=== PATIENT | male | born 1935 | race Caucasian/White ===

== ENCOUNTER → 2018-08-14 10:59 | Outpatient (CLI) | payer MEDICARE, OTHER, SELFPAY ==
[2018-08-14 11:58] LABS: Add Manual Diff / Slide Review NO; Basophils Percent Auto 0.7 % (0-2); Eosinophils Percent Auto 4.3 % (2-4); Hematocrit 44.3 % (41-53); Hemoglobin 15.1 g/dL (13.5-17.5); Mean Corpuscular HGB Conc 34.1 % (30-36); Mean Corpuscular Hemoglobin 30.4 PG (26-34); Mean Corpuscular Volume 89.3 fL (80-100); Monocytes Percent Auto 8.3 % (3-14); Neutrophils Absolute Auto 3200 /uL (1500-7000); Neutrophils Percent Auto 58.7 % (50-75); Platelet Count 228 X10^3/uL (150-400); Red Blood Cell Count 4.96 X10^6/uL (4.5-5.9); Red Cell Distribution Width 13.5 % (11.6-14.8); White Blood Cell Count 5.4 X10^3/uL (4.5-11.0)
[2018-08-14 12:07] LABS: Alanine Aminotransferase 31 IU/L (21-72); Albumin 4.1 g/dL (3.5-5.0); Albumin Globulin Ratio 1.6 (1.0-2.8); Alkaline Phosphatase 55 U/L (38-126); Aspartate Aminotransferase 30 IU/L (17-59); BUN Creatinine Ratio 17.3 (6-22); Bilirubin Total 0.6 mg/dL (0.2-1.3); Blood Urea Nitrogen 19 mg/dL (9-20); Calcium 9.1 mg/dL (8.4-10.2); Carbon Dioxide 28 mmol/L (22-32); Chloride 105 mmol/L (98-107); Cholesterol 213 mg/dL (140-199); Estimated Glomerular Filt Rate > 60.0 mL/min (>60); Globulin 2.6 g/dL (1.7-4.1); Glucose 89 mg/dL (80-110); HDL Cholesterol 41 mg/dL (40-60); HEMOLYSIS < 15 (0-50); LDL Cholesterol Calculated 157 mg/dL (<100); Potassium 4.4 mmol/L (3.4-5.1); Sodium 142 mmol/L (137-145); Total Protein 6.7 g/dL (6.3-8.2); Triglycerides 73 mg/dL (35-150)
== END ==
PROVIDERS: Family Provider Internal Medicine; PCP Internal Medicine; Visit Provider Internal Medicine
DX: E78.5 Hyperlipidemia, unspecified (principal); G40.209 Localization-related (focal) (partial) symptomatic epilepsy and epileptic syndromes with complex partial seizures, not intractable, without status epilepticus
CPT/HCPCS: 36415; 80053; 80061; 85025

== ENCOUNTER → 2018-12-14 15:27 | Outpatient (CLI) | payer MEDICARE, OTHER, SELFPAY ==
[2018-12-16 15:59] LABS: Lamotrigine Lamictal 1.5 mcg/mL (4.0-18.0)
== END ==
PROVIDERS: Family Provider Internal Medicine; PCP Internal Medicine; Visit Provider Specialist
DX: G40.219 Localization-related (focal) (partial) symptomatic epilepsy and epileptic syndromes with complex partial seizures, intractable, without status epilepticus (principal)
CPT/HCPCS: 36415; 80175

== ENCOUNTER → 2019-02-16 13:38 | Outpatient (CLI) | payer MEDICARE, OTHER, SELFPAY ==
[2019-02-20 07:37] LABS: Lamotrigine Lamictal 4.1 mcg/mL (4.0-18.0)
== END ==
PROVIDERS: PCP Internal Medicine; Visit Provider Specialist
DX: G40.219 Localization-related (focal) (partial) symptomatic epilepsy and epileptic syndromes with complex partial seizures, intractable, without status epilepticus (principal)
CPT/HCPCS: 36415; 80175

== ENCOUNTER → 2019-11-27 15:48 | Outpatient (CLI) | payer MEDICARE, OTHER, SELFPAY ==
[2019-11-29 11:07] LABS: COVID19 Sendout Not Detected (Not Detected)
== END ==
PROVIDERS: PCP Internal Medicine; Visit Provider Physician Assistant
DX: R50.9 Fever, unspecified (principal)
CPT/HCPCS: 87635

== ENCOUNTER → 2019-12-27 10:49 | Outpatient (CLI) | payer MEDICARE, OTHER, SELFPAY ==
[2019-12-27 12:13] LABS: Add Manual Diff / Slide Review NO; Basophils Absolute Auto 0 /uL (0-100); Basophils Percent Auto 0.6 % (0-2); Eosinophils Absolute Auto 200 /uL (0-450); Eosinophils Percent Auto 4.3 % (2-4); Hematocrit 42.1 % (41-53); Hemoglobin 14.3 g/dL (13.5-17.5); Lymphocytes Absolute Auto 1200 /uL (1100-4500); Lymphocytes Percent Auto 26.1 % (25-40); Mean Corpuscular HGB Conc 34.1 % (30-36); Mean Corpuscular Hemoglobin 30.3 PG (26-34); Mean Corpuscular Volume 88.7 fL (80-100); Monocytes Absolute Auto 400 /uL (0-900); Monocytes Percent Auto 7.7 % (3-14); Neutrophils Absolute Auto 2900 /uL (1500-7000); Neutrophils Percent Auto 61.3 % (50-75); Platelet Count 217 X10^3/uL (150-400); Red Blood Cell Count 4.74 X10^6/uL (4.5-5.9); Red Cell Distribution Width 14.7 % (11.6-14.8); White Blood Cell Count 4.8 X10^3/uL (4.5-11.0)
[2019-12-27 12:14] LABS: Alanine Aminotransferase 20 IU/L (<50); Albumin 3.9 g/dL (3.5-5.0); Albumin Globulin Ratio 1.4 (1.0-2.8); Alkaline Phosphatase 59 U/L (38-126); Aspartate Aminotransferase 31 IU/L (17-59); BUN Creatinine Ratio 19.3 (6-22); Bilirubin Total 0.7 mg/dL (0.2-1.3); Blood Urea Nitrogen 21 mg/dL (9-20); Calcium 9.2 mg/dL (8.4-10.2); Carbon Dioxide 28 mmol/L (22-32); Chloride 105 mmol/L (98-107); Cholesterol 199 mg/dL (140-199); Estimated Glomerular Filt Rate > 60.0 mL/min (>60); Globulin 2.8 g/dL (1.7-4.1); Glucose 95 mg/dL (80-110); HDL Cholesterol 42 mg/dL (40-60); HEMOLYSIS < 15 (0-50); LDL Cholesterol Calculated 144 mg/dL (<100); Potassium 4.8 mmol/L (3.4-5.1); Sodium 138 mmol/L (137-145); Total Protein 6.7 g/dL (6.3-8.2); Triglycerides 63 mg/dL (35-150)
== END ==
PROVIDERS: PCP Internal Medicine; Referring Provider Internal Medicine; Visit Provider Internal Medicine
DX: Z13.1 Encounter for screening for diabetes mellitus (principal); Z13.6 Encounter for screening for cardiovascular disorders; E78.5 Hyperlipidemia, unspecified
CPT/HCPCS: 36415; 80053; 80061; 85025

== ENCOUNTER → 2021-01-04 11:05 | Outpatient (CLI) | payer MEDICARE, OTHER, SELFPAY ==
--- NOTE | 2021-01-04 11:08 | DI.RAD.S_ITS ---
PROCEDURE: XR LUMBAR SPINE 2-3V INDICATIONS: back pain TECHNIQUE: 3 views of the lumbar spine were acquired. COMPARISON: None. FINDINGS: Bones: Mild left scoliosis. No evidence of acute fracture. Multilevel degenerative endplate sclerosis and spurring. Diffuse facet arthropathy. Moderate narrowing of the L3-L4, L4-L5 and L5-S1 disc spaces. Soft tissues: Overlying bowel gas pattern is normal. No suspicious soft tissue calcifications. IMPRESSION: Moderate lumbar spondylosis involving the mid-lower levels. Diffuse facet arthropathy Levoscoliosis Dictated by: Rivera Gorman M.D. on 01/04/2021 at 12:39 Approved by: Rivera Gorman M.D. on 01/04/2021 at 12:40
[2021-01-04 12:19] LABS: Add Manual Diff / Slide Review NO; Basophils Absolute Auto 0 /uL (0-100); Basophils Percent Auto 0.6 % (0-2); Eosinophils Absolute Auto 200 /uL (0-450); Eosinophils Percent Auto 4.3 % (2-4); Hematocrit 45.3 % (41-53); Hemoglobin 15.4 g/dL (13.5-17.5); Lymphocytes Absolute Auto 1300 /uL (1100-4500); Lymphocytes Percent Auto 25.2 % (25-40); Mean Corpuscular Hemoglobin 30.6 PG (26-34); Mean Corpuscular Volume 90.1 fL (80-100); Monocytes Absolute Auto 400 /uL (0-900); Monocytes Percent Auto 8.5 % (3-14); Neutrophils Absolute Auto 3200 /uL (1500-7000); Neutrophils Percent Auto 61.4 % (50-75); Platelet Count 209 X10^3/uL (150-400); Red Blood Cell Count 5.03 X10^6/uL (4.5-5.9); Red Cell Distribution Width 13.7 % (11.6-14.8); White Blood Cell Count 5.2 X10^3/uL (4.5-11.0)
[2021-01-04 12:24] LABS: Alanine Aminotransferase 19 IU/L (<50); Albumin 3.9 g/dL (3.5-5.0); Albumin Globulin Ratio 1.5 (1.0-2.8); Alkaline Phosphatase 52 U/L (38-126); Aspartate Aminotransferase 30 IU/L (17-59); BUN Creatinine Ratio 21.4 (6-22); Bilirubin Total 0.6 mg/dL (0.2-1.3); Blood Urea Nitrogen 24 mg/dL (9-20); Calcium 9.4 mg/dL (8.4-10.2); Carbon Dioxide 28 mmol/L (22-32); Chloride 104 mmol/L (98-107); Estimated Glomerular Filt Rate > 60.0 mL/min (>60); Globulin 2.6 g/dL (1.7-4.1); Glucose 78 mg/dL (80-110); HEMOLYSIS < 15 (0-50); Potassium 4.7 mmol/L (3.4-5.1); Sodium 138 mmol/L (137-145); Total Protein 6.5 g/dL (6.3-8.2)
[2021-01-08 12:36] LABS: Lamotrigine Lamictal 2.9 ug/mL (2.0-20.0)
== END ==
PROVIDERS: PCP Internal Medicine; Referring Provider Internal Medicine; Visit Provider Internal Medicine
DX: M41.9 Scoliosis, unspecified (principal); M54.9 Dorsalgia, unspecified; G40.209 Localization-related (focal) (partial) symptomatic epilepsy and epileptic syndromes with complex partial seizures, not intractable, without status epilepticus; M47.816 Spondylosis without myelopathy or radiculopathy, lumbar region; I10 Essential (primary) hypertension; E78.2 Mixed hyperlipidemia; Z79.899 Other long term (current) drug therapy
CPT/HCPCS: 36415; 72100; 80053; 80175; 85025

== ENCOUNTER 2021-03-06 11:15 | Outpatient (RCR) | payer MEDICARE, OTHER, SELFPAY ==
--- NOTE | 2021-01-18 12:26 | PT.OIE ---
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) Hyperlipidemia, unspecified (02/27/11) Past Surgical History (Last Reviewed 01/04/21 @ 11:58 by Dionicio Marques MD) History of cataract removal with insertion of prosthetic lens History of tonsillectomy Visit Care Team Role Provider Type Dionicio Marques MD Attending Provider Physician Primary Care Provider Referring Provider Specialty: Internal Medicine Address: [address] [place] [address], [address], [facility] Email: [email or web address] Physical Therapy Initial Evaluation PT-OP-A Visit Information Start: 01/18/21 12:03 Freq: Status: Active Protocol: Document 01/18/21 08:15 HH (Rec: 01/18/21 12:26 [email or web address]) Out-Patient Physical Therapy Visit Information Visit Information Visit Type Initial Evaluation Visit Start Time 08:15 Visit Stop Time 09:00 Total Visit Minutes 45 Visit Number 08/29 Number of SEW[employer] C[employer]ING[employer] Visits 0 Evaluation Information Evaluation Date 01/18/21 PT-OP-B Current Condition Start: 01/18/21 12:03 Freq: Status: Active Protocol: Document 01/18/21 08:15 HH (Rec: 01/18/21 12:26 [email or web address]) Current Condition History of Current Condition Onset Date couple months ago Current Complaints LBP, radiating pain to R hip, difficulty in walking and standing History of Current Condition Carlos is a 85yo male here for his LBP with radiating pain down to his R buttock. There's no known injury but started around a few months ago. He noticed back pain when he stands and during walking, along with new onset of leg collpasing episode occasionally. Denies tingling and numbness sensation. He hasnt had any falls yet since he was able to catch himself. He stated bending over, sitting, and lying down immediately relieve his pain so he has been doing knee to chest stretch. Pt overall is very active and like to walk couple miles a day and like to do yardwork and lawnmowing. Prior Treatments and Tests x-ray at [facility] 01/04/21 Bones: Mild left scoliosis. No evidence of acute fracture. Multilevel degenerative endplate sclerosis and spurring. Diffuse facet arthropathy. Moderate narrowing of the L3-L4, L4-L5 and L5-S1 disc spaces. Personal Factors Other Personal Factors That May Effect seizures. Therapy/Recovery PT-OP-C Subjective Start: 01/18/21 12:03 Freq: Status: Active Protocol: Document 01/18/21 08:15 HH (Rec: 01/18/21 12:26 [email or web address]) Patient Questionnaires Oswestry Low Back Index Oswestry Score 20 Oswestry Impairment 20 to 39% Impaired (Score 20- 39) PT-OP-D Balance Start: 01/18/21 12:03 Freq: Status: Active Protocol: Document 01/18/21 08:15 HH (Rec: 01/18/21 12:26 [email or web address]) Balance Tests Single Limb Standing Single Limb- Right 6,12,20 Single Limb- Left 3,6,18 PT-OP-F Manual Assessment Start: 01/18/21 12:03 Freq: Status: Active Protocol: Document 01/18/21 08:15 HH (Rec: 01/18/21 12:26 [email or web address]) Manual Assessments Soft Tissue Assessment Soft Tissue Mobility Assessment hypertonicity at R QL at L4-L5 region PT-OP-G Mobility & Gait Start: 01/18/21 12:03 Freq: Status: Active Protocol: Document 01/18/21 08:15 HH (Rec: 01/18/21 12:26 [email or web address]) OP Gait Assessment Comments Gait Comments dec stance time on RLE PT-OP-H Neuro Start: 01/18/21 12:03 Freq: Status: Active Protocol: Document 01/18/21 08:15 HH (Rec: 01/18/21 12:26 [email or web address]) Sensation Evaluation Gross Sensation Gross Sensation WNL Deep Tendon Reflex & Clonus Assessment Deep Tendon Reflex Bilateral Patellar Deep Tendon Reflex 0 Absent Bilateral Achilles Deep Tendon Reflex 2+ Normal PT-OP-J Posture/Palpation/Skin Start: 01/18/21 12:03 Freq: Status: Active Protocol: Document 01/18/21 08:15 HH (Rec: 01/18/21 12:26 [email or web address]) Posture Evaluation Position Standing Pelvis Posture Posterior Tilted Knee Posture (L) Excess Flexion,(R) Excess Flexion PT-OP-K Range of Motion Start: 01/18/21 12:03 Freq: Status: Active Protocol: Document 01/18/21 08:15 HH (Rec: 01/18/21 12:26 [email or web address]) Lumbar Spine Range of Motion Lumbar Spine Active Degrees Testing Position Standing Comments able to reach toes, no pain noted SB to L= 23 inches from floor , stretching sensation at R side SB to R= 23 inches from floor, with pain at R L4L5 extension= shoulders at heels, discomfort at R L4L5 Hip Goniometric Range of Motion Hip Right Active Hip ROM WFL Yes Straight Leg Raise 83 Left Active Hip ROM WFL Yes Straight Leg Raise 85 PT-OP-L Special Tests Start: 01/18/21 12:03 Freq: Status: Active Protocol: Document 01/18/21 08:15 HH (Rec: 01/18/21 12:26 [email or web address]) Special Tests Lumbar Spine Special Tests Slump Test Results -ve Standing Flexion Test Results pain relief quadrant test Test Results +ve R Comments extension, SB and rotation to R passively with pain at l4-L5 Straight Leg Raise Test Results -ve PT-OP-M Strength Start: 01/18/21 12:03 Freq: Status: Active Protocol: Document 01/18/21 08:15 HH (Rec: 01/18/21 12:26 [email or web address]) Hip Strength Hip Manual Muscle Testing Right Flexion (L2) 5 Normal Extension (S1) 5 Normal Abduction 4 Good Adduction 5 Normal Comments pain with resistive R abduction Left Flexion (L2) 5 Normal Extension (S1) 5 Normal Abduction 5 Normal Adduction 5 Normal Knee Strength Knee Manual Muscle Testing Left Flexion (S2) 5 Normal Extension (L3) 5 Normal Right Flexion (S2) 5 Normal Extension (L3) 5 Normal PT-OP-Q Treatments Start: 01/18/21 12:03 Freq: Status: Active Protocol: Document 01/18/21 08:15 HH (Rec: 01/18/21 12:26 [email or web address]) Therapeutic Exercises Supine Exercises piriformis stretch Side right Reps/Minutes 20 sec hold x5 Comments for HEP knee to chest Side bilateral Reps/Minutes 20 sec hold x5 Comments for HEP PT-OP-T Assessment and Plan Start: 01/18/21 12:03 Freq: Status: Active Protocol: Document 01/18/21 08:15 (Rec: 01/18/21 12:26 [email or web address]) Physical Therapy Assessment Rehab Potential Rehabilitation Potential Excellent Evaluation Complexity Number of Personal Factors/Comorbidities 0 Number of Body Systems Impaired 1-2 Clinical Presentation at Evaluation Stable Impairments Impairments Activity Tolerance,Balance, Functional Activities, Functional Mobility,Gait,Pain, Posture,ROM,Soft Tissue Mobility,Strength,Transfers Goals HEP Impairment pt does not ahve a HEP Short Term Goal (STG) pt will be compliant to complete his daily HEP safely and independently STG Duration 4 weeks activity tolerance Impairment pain with standing and walking Short Term Goal (STG) pt will be able to stand >10 mins and walk 1 mile without increase in LBP STG Duration 4 weeks Residential Goal (LTG) pt will be able to stand >30 mins and walk 3 mile/ day without LBP LTG Duration 8 weeks owestry Impairment pt scores 20 on owestry Short Term Goal (STG) pt will show improved overall quality of life by scoring <10 on owestry STG Duration 6 weeks Assessment Summary Assessment Carlos is a healthy and active 85 yo male here for his LBP with radiating R buttock pain started a few months ago with no known injury. Upon assessment, he shows signs of stenosis and possible facet joint syndrome at L4-L5 region which aligns with his x-ray findings. His pain tends to relieve with lumbar flexion based movements which increase foraminal space for peripheral nerves. Pt does not shows any neurological signs / weakness at this point fortunately. And he will benefit from skilled therapy to reduce his pain and build up his activity tolerance for walking and standing to continue his active lifestyle in pain free. Physical Therapy Plan Frequency and Duration Frequency of Treatment 1x/Week Duration of Treatment 8 weeks Plan of Care Start Date 02/07/21 Plan of Care End Date 03/19/21 Therapeutic Interventions Therapeutic Interventions Aquatic Therapy,Balance Training,Gait Training,Home Exercise Program,Joint Mobilizations,Manual Therapy, Neuromuscular Re-education, Patient/Caregiver Education, Self-Care/Home Management,Soft Tissue Mobilization,Taping, Therapeutic Activities, Therapeutic Exercises Modalities Cold Pack/Ice Massage,Electric Stimulation,Hot Packs, Infrared Therapy,Traction- Mechanical,Ultrasound Next Visit Focus/Plan Next Note Type Treatment Note Next Visit Plan flexion based ex knee to chest, piriformis pelvic tilt with flexion bridging open book
--- NOTE | 2021-01-18 12:27 | PT.OPPOC ---
Physical, Occupational & Speech Therapy At [facility] Current Diagnoses Dorsalgia, unspecified (01/18/21) Visit Care Team Role Provider Type Dionicio Marques MD Attending Provider Physician Primary Care Provider Referring Provider Specialty: Internal Medicine Address: [address] [place] [address], [facility] [address], [place], [address] Email: [email or web address] Plan Of Care PT-OP-T Assessment and Plan Start: 01/18/21 12:03 Freq: Status: Active Protocol: Document 01/18/21 08:15 HH (Rec: 01/18/21 12:26 HH [email or web address]) Physical Therapy Assessment Rehab Potential Rehabilitation Potential Excellent Evaluation Complexity Number of Personal Factors/Comorbidities 0 Number of Body Systems Impaired 1-2 Clinical Presentation at Evaluation Stable Impairments Impairments Activity Tolerance,Balance, Functional Activities, Functional Mobility,Gait,Pain, Posture,ROM,Soft Tissue Mobility,Strength,Transfers Goals HEP Impairment pt does not ahve a HEP Short Term Goal (STG) pt will be compliant to complete his daily HEP safely and independently STG Duration 4 weeks activity tolerance Impairment pain with standing and walking Short Term Goal (STG) pt will be able to stand >10 mins and walk 1 mile without increase in LBP STG Duration 4 weeks Traffic Chief Goal (LTG) pt will be able to stand >30 mins and walk 3 mile/ day without LBP LTG Duration 8 weeks owestry Impairment pt scores 20 on owestry Short Term Goal (STG) pt will show improved overall quality of life by scoring <10 on owestry STG Duration 6 weeks Assessment Summary Assessment Carlos is a healthy and active 85 yo male here for his LBP with radiating R buttock pain started a few months ago with no known injury. Upon assessment, he shows signs of stenosis and possible facet joint syndrome at L4-L5 region which aligns with his x-ray findings. His pain tends to relieve with lumbar flexion based movements which increase foraminal space for peripheral nerves. Pt does not shows any neurological signs / weakness at this point fortunately. And he will benefit from skilled therapy to reduce his pain and build up his activity tolerance for walking and standing to continue his active lifestyle in pain free. Physical Therapy Plan Frequency and Duration Frequency of Treatment 1x/Week Duration of Treatment 8 weeks Plan of Care Start Date 02/07/21 Plan of Care End Date 03/19/21 Therapeutic Interventions Therapeutic Interventions Aquatic Therapy,Balance Training,Gait Training,Home Exercise Program,Joint Mobilizations,Manual Therapy, Neuromuscular Re-education, Patient/Caregiver Education, Self-Care/Home Management,Soft Tissue Mobilization,Taping, Therapeutic Activities, Therapeutic Exercises Modalities Cold Pack/Ice Massage,Electric Stimulation,Hot Packs, Infrared Therapy,Traction- Mechanical,Ultrasound Next Visit Focus/Plan Next Note Type Treatment Note Next Visit Plan flexion based ex knee to chest, piriformis pelvic tilt with flexion bridging open book Plan of Care Dates Plan of Care Start Date 02/07/21 Plan of Care End Date 03/19/21 Electronically Signed by: Jose David Brown, PT 01/18/21 6031 Please Sign and Return: I have reviewed this Plan of Care and certify that the skilled therapy services above are required to meet the patient?s needs. Physician Signature Date Printed Name and Credentials Clinical Instructor Signature Printed Name and Credentials
--- NOTE | 2021-01-23 10:29 | PT.OTN ---
Current Diagnoses Dorsalgia, unspecified (01/23/21) Physical Therapy Treatment Note PT-OP-A Visit Information Start: 01/18/21 12:03 Freq: Status: Active Protocol: Document 01/23/21 10:24 OF (Rec: 01/23/21 10:29 OF [id number]) Out-Patient Physical Therapy Visit Information Visit Information Visit Type Treatment Note Visit Start Time 09:45 Visit Stop Time 10:21 Total Visit Minutes 36 Visit Number 2 Evaluation Information Evaluation Date 01/18/21 PT-OP-B Current Condition Start: 01/18/21 12:03 Freq: Status: Active Protocol: Document 01/18/21 08:15 HH (Rec: 01/18/21 12:26 HH [email or web address]) Current Condition History of Current Condition Onset Date couple months ago Current Complaints LBP, radiating pain to R hip, difficulty in walking and standing History of Current Condition Carlos is a 85yo male here for his LBP with radiating pain down to his R buttock. There's no known injury but started around a few months ago. He noticed back pain when he stands and during walking, along with new onset of leg collpasing episode occasionally. Denies tingling and numbness sensation. He hasnt had any falls yet since he was able to catch himself. He stated bending over, sitting, and lying down immediately relieve his pain so he has been doing knee to chest stretch. Pt overall is very active and like to walk couple miles a day and like to do yardwork and lawnmowing. Prior Treatments and Tests x-ray at [facility] 01/04/21 Bones: Mild left scoliosis. No evidence of acute fracture. Multilevel degenerative endplate sclerosis and spurring. Diffuse facet arthropathy. Moderate narrowing of the L3-L4, L4-L5 and L5-S1 disc spaces. Personal Factors Other Personal Factors That May Effect seizures. Therapy/Recovery PT-OP-C Subjective Start: 01/18/21 12:03 Freq: Status: Active Protocol: Document 01/23/21 10:24 OF (Rec: 01/23/21 10:29 OF [id number]) OP-PT Subjective Patient Comments Patient Comments Pt states he has been performing HEP for stretches, walking as instructed Patient Reported Progress Improving OP-PT Pain Assessment Pain Assessment Grid Paper Pain Assessment Grid Completed pt denies pain during tx PT-OP-D Balance Start: 01/18/21 12:03 Freq: Status: Active Protocol: Document 01/18/21 08:15 HH (Rec: 01/18/21 12:26 [email or web address]) Balance Tests Single Limb Standing Single Limb- Right 6,12,20 Single Limb- Left 3,6,18 PT-OP-F Manual Assessment Start: 01/18/21 12:03 Freq: Status: Active Protocol: Document 01/18/21 08:15 HH (Rec: 01/18/21 12:26 [email or web address]) Manual Assessments Soft Tissue Assessment Soft Tissue Mobility Assessment hypertonicity at R QL at L4-L5 region PT-OP-G Mobility & Gait Start: 01/18/21 12:03 Freq: Status: Active Protocol: Document 01/18/21 08:15 HH (Rec: 01/18/21 12:26 [email or web address]) OP Gait Assessment Comments Gait Comments dec stance time on RLE PT-OP-H Neuro Start: 01/18/21 12:03 Freq: Status: Active Protocol: Document 01/18/21 08:15 HH (Rec: 01/18/21 12:26 [email or web address]) Sensation Evaluation Gross Sensation Gross Sensation WNL Deep Tendon Reflex & Clonus Assessment Deep Tendon Reflex Bilateral Patellar Deep Tendon Reflex 0 Absent Bilateral Achilles Deep Tendon Reflex 2+ Normal PT-OP-J Posture/Palpation/Skin Start: 01/18/21 12:03 Freq: Status: Active Protocol: Document 01/18/21 08:15 HH (Rec: 01/18/21 12:26 [email or web address]) Posture Evaluation Position Standing Pelvis Posture Posterior Tilted Knee Posture (L) Excess Flexion,(R) Excess Flexion PT-OP-K Range of Motion Start: 01/18/21 12:03 Freq: Status: Active Protocol: Document 01/18/21 08:15 HH (Rec: 01/18/21 12:26 [email or web address]) Lumbar Spine Range of Motion Lumbar Spine Active Degrees Testing Position Standing Comments able to reach toes, no pain noted SB to L= 23 inches from floor , stretching sensation at R side SB to R= 23 inches from floor, with pain at R L4L5 extension= shoulders at heels, discomfort at R L4L5 Hip Goniometric Range of Motion Hip Right Active Hip ROM WFL Yes Straight Leg Raise 83 Left Active Hip ROM WFL Yes Straight Leg Raise 85 PT-OP-L Special Tests Start: 01/18/21 12:03 Freq: Status: Active Protocol: Document 01/18/21 08:15 HH (Rec: 01/18/21 12:26 HH [email or web address]) Special Tests Lumbar Spine Special Tests Slump Test Results -ve Standing Flexion Test Results pain relief quadrant test Test Results +ve R Comments extension, SB and rotation to R passively with pain at l4-L5 Straight Leg Raise Test Results -ve PT-OP-M Strength Start: 01/18/21 12:03 Freq: Status: Active Protocol: Document 01/18/21 08:15 HH (Rec: 01/18/21 12:26 HH [email or web address]) Hip Strength Hip Manual Muscle Testing Right Flexion (L2) 5 Normal Extension (S1) 5 Normal Abduction 4 Good Adduction 5 Normal Comments pain with resistive R abduction Left Flexion (L2) 5 Normal Extension (S1) 5 Normal Abduction 5 Normal Adduction 5 Normal Knee Strength Knee Manual Muscle Testing Left Flexion (S2) 5 Normal Extension (L3) 5 Normal Right Flexion (S2) 5 Normal Extension (L3) 5 Normal PT-OP-Q Treatments Start: 01/18/21 12:03 Freq: Status: Active Protocol: Document 01/23/21 10:24 OF (Rec: 01/23/21 10:29 OF [id number]) Therapeutic Exercises Supine Exercises post tilt+bridge Side bilateral Reps/Minutes 3x5 Comments cues for post tilt with lift off during bridge piriformis stretch Side bilateral Reps/Minutes 20 sec hold x5 Comments for HEP knee to chest Side bilateral Reps/Minutes 20 sec hold x5 Comments for HEP Standing Exercises minisquat Side bilateral Reps/Minutes 3x5 Comments demo for glute recruitment, cues to control descent Neuro Re-Education Treatment Movement Re-Education Movement Re-education Activities pt re educated upon flexion bias, self stretching Self-Care/Home Management Treatment Education Patient Education Body Mechanics,Home Exercise Program PT-OP-T Assessment and Plan Start: 01/18/21 12:03 Freq: Status: Active Protocol: Document 01/23/21 10:24 OF (Rec: 01/23/21 10:29 OF [id number]) Physical Therapy Assessment Rehab Potential Rehabilitation Potential Excellent Evaluation Complexity Number of Personal Factors/Comorbidities 1-2 Number of Body Systems Impaired 1-2 Clinical Presentation at Evaluation Stable Impairments Impairments Pain,ROM,Strength Progress Towards Goals Progress Towards Goals Progressing Toward Goals Assessment Summary Assessment Pt has reduced symptoms today, states HEP has been beneficial. Pt has difficulty with post pelvic tilt, agreeable to HEP addition. He has been educated upon positional changes and flexion bias per his report of pain alleviating stretches and posture Physical Therapy Plan Next Visit Focus/Plan Next Note Type Treatment Note Next Visit Plan flexion based ex knee to chest, piriformis pelvic tilt with flexion bridging open book assess HEP addition of bridge and post tilt, minisquats
--- NOTE | 2021-01-25 12:07 | PT.OTN ---
Current Diagnoses Dorsalgia, unspecified (01/25/21) Physical Therapy Treatment Note PT-OP-A Visit Information Start: 01/18/21 12:03 Freq: Status: Active Protocol: Document 01/25/21 09:01 (Rec: 01/25/21 12:07 [id number]) Out-Patient Physical Therapy Visit Information Visit Information Visit Type Treatment Note Visit Start Time 09:03 Visit Stop Time 09:45 Total Visit Minutes 42 Visit Number 3 PT-OP-B Current Condition Start: 01/18/21 12:03 Freq: Status: Active Protocol: Document 01/18/21 08:15 (Rec: 01/18/21 12:26 [email or web address]) Current Condition History of Current Condition Onset Date couple months ago Current Complaints LBP, radiating pain to R hip, difficulty in walking and standing History of Current Condition Carlos is a 85yo male here for his LBP with radiating pain down to his R buttock. There's no known injury but started around a few months ago. He noticed back pain when he stands and during walking, along with new onset of leg collpasing episode occasionally. Denies tingling and numbness sensation. He hasnt had any falls yet since he was able to catch himself. He stated bending over, sitting, and lying down immediately relieve his pain so he has been doing knee to chest stretch. Pt overall is very active and like to walk couple miles a day and like to do yardwork and lawnmowing. Prior Treatments and Tests x-ray at [facility] 01/04/21 Bones: Mild left scoliosis. No evidence of acute fracture. Multilevel degenerative endplate sclerosis and spurring. Diffuse facet arthropathy. Moderate narrowing of the L3-L4, L4-L5 and L5-S1 disc spaces. Personal Factors Other Personal Factors That May Effect seizures. Therapy/Recovery PT-OP-C Subjective Start: 01/18/21 12:03 Freq: Status: Active Protocol: Document 01/25/21 09:01 (Rec: 01/25/21 12:07 [id number]) OP-PT Subjective Patient Comments Patient Comments The stretches help to relieve symptoms immediately but my pain tends to come back once stand after awhile PT-OP-D Balance Start: 01/18/21 12:03 Freq: Status: Active Protocol: Document 01/18/21 08:15 HH (Rec: 01/18/21 12:26 [email or web address]) Balance Tests Single Limb Standing Single Limb- Right 6,12,20 Single Limb- Left 3,6,18 PT-OP-F Manual Assessment Start: 01/18/21 12:03 Freq: Status: Active Protocol: Document 01/18/21 08:15 HH (Rec: 01/18/21 12:26 [email or web address]) Manual Assessments Soft Tissue Assessment Soft Tissue Mobility Assessment hypertonicity at R QL at L4-L5 region PT-OP-G Mobility & Gait Start: 01/18/21 12:03 Freq: Status: Active Protocol: Document 01/18/21 08:15 HH (Rec: 01/18/21 12:26 [email or web address]) OP Gait Assessment Comments Gait Comments dec stance time on RLE PT-OP-H Neuro Start: 01/18/21 12:03 Freq: Status: Active Protocol: Document 01/18/21 08:15 HH (Rec: 01/18/21 12:26 [email or web address]) Sensation Evaluation Gross Sensation Gross Sensation WNL Deep Tendon Reflex & Clonus Assessment Deep Tendon Reflex Bilateral Patellar Deep Tendon Reflex 0 Absent Bilateral Achilles Deep Tendon Reflex 2+ Normal PT-OP-J Posture/Palpation/Skin Start: 01/18/21 12:03 Freq: Status: Active Protocol: Document 01/18/21 08:15 HH (Rec: 01/18/21 12:26 [email or web address]) Posture Evaluation Position Standing Pelvis Posture Posterior Tilted Knee Posture (L) Excess Flexion,(R) Excess Flexion PT-OP-K Range of Motion Start: 01/18/21 12:03 Freq: Status: Active Protocol: Document 01/18/21 08:15 HH (Rec: 01/18/21 12:26 [email or web address]) Lumbar Spine Range of Motion Lumbar Spine Active Degrees Testing Position Standing Comments able to reach toes, no pain noted SB to L= 23 inches from floor , stretching sensation at R side SB to R= 23 inches from floor, with pain at R L4L5 extension= shoulders at heels, discomfort at R L4L5 Hip Goniometric Range of Motion Hip Right Active Hip ROM WFL Yes Straight Leg Raise 83 Left Active Hip ROM WFL Yes Straight Leg Raise 85 PT-OP-L Special Tests Start: 01/18/21 12:03 Freq: Status: Active Protocol: Document 01/18/21 08:15 (Rec: 01/18/21 12:26 [email or web address]) Special Tests Lumbar Spine Special Tests Slump Test Results -ve Standing Flexion Test Results pain relief quadrant test Test Results +ve R Comments extension, SB and rotation to R passively with pain at l4-L5 Straight Leg Raise Test Results -ve PT-OP-M Strength Start: 01/18/21 12:03 Freq: Status: Active Protocol: Document 01/18/21 08:15 (Rec: 01/18/21 12:26 [email or web address]) Hip Strength Hip Manual Muscle Testing Right Flexion (L2) 5 Normal Extension (S1) 5 Normal Abduction 4 Good Adduction 5 Normal Comments pain with resistive R abduction Left Flexion (L2) 5 Normal Extension (S1) 5 Normal Abduction 5 Normal Adduction 5 Normal Knee Strength Knee Manual Muscle Testing Left Flexion (S2) 5 Normal Extension (L3) 5 Normal Right Flexion (S2) 5 Normal Extension (L3) 5 Normal PT-OP-Q Treatments Start: 01/18/21 12:03 Freq: Status: Active Protocol: Document 01/25/21 09:01 (Rec: 01/25/21 12:07 [id number]) Therapeutic Exercises Supine Exercises post tilt+bridge Side bilateral Reps/Minutes 3x5 Comments cues for post tilt with lift off during bridge piriformis stretch Side bilateral Reps/Minutes 20 sec hold x5 Comments for HEP knee to chest Side bilateral Reps/Minutes 20 sec hold x5 Comments for HEP Sitting Exercises pelvic tilt Comments max cues needed, pt only able to achieve APT Standing Exercises pelvict tilt Comments max cues needed, pt only able to achieve APT Manual Therapy Treatment Soft Tissue Mobilization R glute Body Location SIJ region, piriformis, glute med Mobilization Type Myofascial Release Intensity/Depth Moderate Body Position Sidelying PT-OP-T Assessment and Plan Start: 01/18/21 12:03 Freq: Status: Active Protocol: Document 01/25/21 09:01 (Rec: 01/25/21 12:07 [id number]) Physical Therapy Assessment Goals HEP Impairment pt does not ahve a HEP Short Term Goal (STG) pt will be compliant to complete his daily HEP safely and independently STG Duration 4 weeks activity tolerance Impairment pain with standing and walking Short Term Goal (STG) pt will be able to stand >10 mins and walk 1 mile without increase in LBP STG Duration 4 weeks Fibrous Wallboard Inspector Goal (LTG) pt will be able to stand >30 mins and walk 3 mile/ day without LBP LTG Duration 8 weeks owestry Impairment pt scores 20 on owestry Short Term Goal (STG) pt will show improved overall quality of life by scoring <10 on owestry STG Duration 6 weeks Assessment Summary Assessment Pt has significant difficulty engaging pelvic tilt in WB position. Educated him to focus on it in supine position at this point. Physical Therapy Plan Frequency and Duration Frequency of Treatment 1x/Week Duration of Treatment 8 weeks Plan of Care Start Date 02/07/21 Plan of Care End Date 03/19/21 Therapeutic Interventions Therapeutic Interventions Aquatic Therapy,Balance Training,Gait Training,Home Exercise Program,Joint Mobilizations,Manual Therapy, Neuromuscular Re-education, Patient/Caregiver Education, Self-Care/Home Management,Soft Tissue Mobilization,Taping, Therapeutic Activities, Therapeutic Exercises Modalities Cold Pack/Ice Massage,Electric Stimulation,Hot Packs, Infrared Therapy,Traction- Mechanical,Ultrasound Next Visit Focus/Plan Next Note Type Treatment Note Next Visit Plan flexion based ex knee to chest, piriformis pelvic tilt with flexion bridging open book assess HEP addition of bridge and post tilt, minisquats
--- NOTE | 2021-01-30 10:35 | PT.OTN ---
Current Diagnoses Dorsalgia, unspecified (01/30/21) Physical Therapy Treatment Note PT-OP-A Visit Information Start: 01/18/21 12:03 Freq: Status: Active Protocol: Document 01/30/21 09:50 SP (Rec: 01/30/21 11:24 SP [id number]) Out-Patient Physical Therapy Visit Information Visit Information Visit Type Treatment Note Visit Start Time 09:50 Visit Stop Time 10:35 Total Visit Minutes 45 Visit Number 4 Number of SHIPPING HELPER Visits 1 Evaluation Information Evaluation Date 01/18/21 PT-OP-B Current Condition Start: 01/18/21 12:03 Freq: Status: Active Protocol: Document 01/18/21 08:15 HH (Rec: 01/18/21 12:26 HH [email or web address]) Current Condition History of Current Condition Onset Date couple months ago Current Complaints LBP, radiating pain to R hip, difficulty in walking and standing History of Current Condition Carlos is a 85yo male here for his LBP with radiating pain down to his R buttock. There's no known injury but started around a few months ago. He noticed back pain when he stands and during walking, along with new onset of leg collpasing episode occasionally. Denies tingling and numbness sensation. He hasnt had any falls yet since he was able to catch himself. He stated bending over, sitting, and lying down immediately relieve his pain so he has been doing knee to chest stretch. Pt overall is very active and like to walk couple miles a day and like to do yardwork and lawnmowing. Prior Treatments and Tests x-ray at [facility] 01/04/21 Bones: Mild left scoliosis. No evidence of acute fracture. Multilevel degenerative endplate sclerosis and spurring. Diffuse facet arthropathy. Moderate narrowing of the L3-L4, L4-L5 and L5-S1 disc spaces. Personal Factors Other Personal Factors That May Effect seizures. Therapy/Recovery PT-OP-C Subjective Start: 01/18/21 12:03 Freq: Status: Active Protocol: Document 01/30/21 09:50 SP (Rec: 01/30/21 11:24 SP [id number]) OP-PT Subjective Patient Comments Patient Comments Pt states doing ok. Compliant with stretching but mid back has been really tight and uncomfortable lately. PT-OP-D Balance Start: 01/18/21 12:03 Freq: Status: Active Protocol: Document 01/18/21 08:15 HH (Rec: 01/18/21 12:26 [email or web address]) Balance Tests Single Limb Standing Single Limb- Right 6,12,20 Single Limb- Left 3,6,18 PT-OP-F Manual Assessment Start: 01/18/21 12:03 Freq: Status: Active Protocol: Document 01/18/21 08:15 HH (Rec: 01/18/21 12:26 [email or web address]) Manual Assessments Soft Tissue Assessment Soft Tissue Mobility Assessment hypertonicity at R QL at L4-L5 region PT-OP-G Mobility & Gait Start: 01/18/21 12:03 Freq: Status: Active Protocol: Document 01/18/21 08:15 HH (Rec: 01/18/21 12:26 [email or web address]) OP Gait Assessment Comments Gait Comments dec stance time on RLE PT-OP-H Neuro Start: 01/18/21 12:03 Freq: Status: Active Protocol: Document 01/18/21 08:15 HH (Rec: 01/18/21 12:26 [email or web address]) Sensation Evaluation Gross Sensation Gross Sensation WNL Deep Tendon Reflex & Clonus Assessment Deep Tendon Reflex Bilateral Patellar Deep Tendon Reflex 0 Absent Bilateral Achilles Deep Tendon Reflex 2+ Normal PT-OP-J Posture/Palpation/Skin Start: 01/18/21 12:03 Freq: Status: Active Protocol: Document 01/18/21 08:15 HH (Rec: 01/18/21 12:26 [email or web address]) Posture Evaluation Position Standing Pelvis Posture Posterior Tilted Knee Posture (L) Excess Flexion,(R) Excess Flexion PT-OP-K Range of Motion Start: 01/18/21 12:03 Freq: Status: Active Protocol: Document 01/18/21 08:15 HH (Rec: 01/18/21 12:26 [email or web address]) Lumbar Spine Range of Motion Lumbar Spine Active Degrees Testing Position Standing Comments able to reach toes, no pain noted SB to L= 23 inches from floor , stretching sensation at R side SB to R= 23 inches from floor, with pain at R L4L5 extension= shoulders at heels, discomfort at R L4L5 Hip Goniometric Range of Motion Hip Right Active Hip ROM WFL Yes Straight Leg Raise 83 Left Active Hip ROM WFL Yes Straight Leg Raise 85 PT-OP-L Special Tests Start: 01/18/21 12:03 Freq: Status: Active Protocol: Document 01/18/21 08:15 HH (Rec: 01/18/21 12:26 HH [email or web address]) Special Tests Lumbar Spine Special Tests Slump Test Results -ve Standing Flexion Test Results pain relief quadrant test Test Results +ve R Comments extension, SB and rotation to R passively with pain at l4-L5 Straight Leg Raise Test Results -ve PT-OP-M Strength Start: 01/18/21 12:03 Freq: Status: Active Protocol: Document 01/18/21 08:15 HH (Rec: 01/18/21 12:26 HH [email or web address]) Hip Strength Hip Manual Muscle Testing Right Flexion (L2) 5 Normal Extension (S1) 5 Normal Abduction 4 Good Adduction 5 Normal Comments pain with resistive R abduction Left Flexion (L2) 5 Normal Extension (S1) 5 Normal Abduction 5 Normal Adduction 5 Normal Knee Strength Knee Manual Muscle Testing Left Flexion (S2) 5 Normal Extension (L3) 5 Normal Right Flexion (S2) 5 Normal Extension (L3) 5 Normal PT-OP-Q Treatments Start: 01/18/21 12:03 Freq: Status: Active Protocol: Document 01/30/21 09:50 SP (Rec: 01/30/21 11:24 SP [id number]) Therapeutic Exercises Supine Exercises clamshell Supine Exercise Name added toHEP Side bilateral Resistance TB#3 Reps/Minutes 2x10 Comments good PPT and core fac. LTR Supine Exercise Name and single LTR over opp LE rotation. Side bilateral Reps/Minutes 30 x2, each Comments good stretch more R then L. post tilt+bridge Supine Exercise Name knees bent less discomfort on LB than straight Side bilateral Reps/Minutes 3x5 Comments cues for post tilt with lift off during bridge piriformis stretch Side bilateral Reps/Minutes 20 sec hold x5 Comments reviewed HEP knee to chest Side bilateral Reps/Minutes 20 sec hold x5 Comments reviewed HEP Sidelying Exercises open book Sidelying Exercise Name head with hands - added to HEP Side bilateral Reps/Minutes 2x8 reps Comments good form Sitting Exercises Lumbar flexion Sitting Exercise Name added to HEP Reps/Minutes 20 x3 Comments good feedback response Standing Exercises self STMs Standing Exercise Name ES, gluts Side bilateral Equipment Used racquetball roll at wall Reps/Minutes 2 min total Comments good feedback response, lucila over gluts Manual Therapy Treatment Soft Tissue Mobilization ES, paraspinals Body Location T10- T6 Mobilization Type Strumming Intensity/Depth Moderate Body Position Prone Comments good feedback response Joint Mobilizations TS PAs Joint T7- T10 Direction PA Grade II Body Position Prone PT-OP-T Assessment and Plan Start: 01/18/21 12:03 Freq: Status: Active Protocol: Document 01/30/21 09:50 SP (Rec: 01/30/21 11:24 SP [id number]) Physical Therapy Assessment Goals HEP Impairment pt does not ahve a HEP Short Term Goal (STG) pt will be compliant to complete his daily HEP safely and independently STG Duration 4 weeks activity tolerance Impairment pain with standing and walking Short Term Goal (STG) pt will be able to stand >10 mins and walk 1 mile without increase in LBP STG Duration 4 weeks Penitentiary Goal (LTG) pt will be able to stand >30 mins and walk 3 mile/ day without LBP LTG Duration 8 weeks owestry Impairment pt scores 20 on owestry Short Term Goal (STG) pt will show improved overall quality of life by scoring <10 on owestry STG Duration 6 weeks Assessment Summary Assessment Pt responded well to HEP review focus on flexibility and TA facilitation. Pt challenged TA stabilization during straight leg bridge said was instructed last tx, modified to knee bent with improvement in almost no pain and director government B SI. Initiated hooklying clamshell TB #3, LS rotation, open book, seated lumbar flexion mobility and self STMs to improve lower lumbar and TS tightness once coming to standing. Pt stated felt much better end of tx than when arrived. Provided hand outs for recall, set up and proepr form for benefits. Physical Therapy Plan Frequency and Duration Frequency of Treatment 1x/Week Duration of Treatment 8 weeks Plan of Care Start Date 02/07/21 Plan of Care End Date 03/19/21 Therapeutic Interventions Therapeutic Interventions Aquatic Therapy,Balance Training,Gait Training,Home Exercise Program,Joint Mobilizations,Manual Therapy, Neuromuscular Re-education, Patient/Caregiver Education, Self-Care/Home Management,Soft Tissue Mobilization,Taping, Therapeutic Activities, Therapeutic Exercises Modalities Cold Pack/Ice Massage,Electric Stimulation,Hot Packs, Infrared Therapy,Traction- Mechanical,Ultrasound Next Visit Focus/Plan Next Note Type Treatment Note Next Visit Plan Assess response to HEP review, initiated flex, self STMs and TA/hip abd facilitation. Next tx: progress TA and hip abd. POC: flexion based ex knee to chest, piriformis pelvic tilt with flexion bridging open book assess HEP addition of bridge and post tilt, minisquats
--- NOTE | 2021-02-08 12:22 | PT.OTN ---
Current Diagnoses Dorsalgia, unspecified (02/08/21) Physical Therapy Treatment Note PT-OP-A Visit Information Start: 01/18/21 12:03 Freq: Status: Active Protocol: Document 02/08/21 10:30 AW (Rec: 02/08/21 10:32 AW [id number]) Out-Patient Physical Therapy Visit Information Visit Information Visit Type Treatment Note Visit Start Time 09:45 Visit Stop Time 10:30 Evaluation Information Evaluation Date 01/18/21 PT-OP-B Current Condition Start: 01/18/21 12:03 Freq: Status: Active Protocol: Document 01/18/21 08:15 HH (Rec: 01/18/21 12:26 HH [email or web address]) Current Condition History of Current Condition Onset Date couple months ago Current Complaints LBP, radiating pain to R hip, difficulty in walking and standing History of Current Condition Carlos is a 85yo male here for his LBP with radiating pain down to his R buttock. There's no known injury but started around a few months ago. He noticed back pain when he stands and during walking, along with new onset of leg collpasing episode occasionally. Denies tingling and numbness sensation. He hasnt had any falls yet since he was able to catch himself. He stated bending over, sitting, and lying down immediately relieve his pain so he has been doing knee to chest stretch. Pt overall is very active and like to walk couple miles a day and like to do yardwork and lawnmowing. Prior Treatments and Tests x-ray at [facility] 01/04/21 Bones: Mild left scoliosis. No evidence of acute fracture. Multilevel degenerative endplate sclerosis and spurring. Diffuse facet arthropathy. Moderate narrowing of the L3-L4, L4-L5 and L5-S1 disc spaces. Personal Factors Other Personal Factors That May Effect seizures. Therapy/Recovery PT-OP-C Subjective Start: 01/18/21 12:03 Freq: Status: Active Protocol: Document 02/08/21 10:30 AW (Rec: 02/08/21 10:32 AW [id number]) OP-PT Subjective Patient Comments Patient Comments Pt reports some dizziness associated with open book/head turning. No lightheadedness. More like nausea and spinning. Was doing open book on bed without pillow support. PT-OP-D Balance Start: 01/18/21 12:03 Freq: Status: Active Protocol: Document 01/18/21 08:15 HH (Rec: 01/18/21 12:26 [email or web address]) Balance Tests Single Limb Standing Single Limb- Right 6,12,20 Single Limb- Left 3,6,18 PT-OP-F Manual Assessment Start: 01/18/21 12:03 Freq: Status: Active Protocol: Document 01/18/21 08:15 HH (Rec: 01/18/21 12:26 [email or web address]) Manual Assessments Soft Tissue Assessment Soft Tissue Mobility Assessment hypertonicity at R QL at L4-L5 region PT-OP-G Mobility & Gait Start: 01/18/21 12:03 Freq: Status: Active Protocol: Document 01/18/21 08:15 HH (Rec: 01/18/21 12:26 [email or web address]) OP Gait Assessment Comments Gait Comments dec stance time on RLE PT-OP-H Neuro Start: 01/18/21 12:03 Freq: Status: Active Protocol: Document 01/18/21 08:15 HH (Rec: 01/18/21 12:26 [email or web address]) Sensation Evaluation Gross Sensation Gross Sensation WNL Deep Tendon Reflex & Clonus Assessment Deep Tendon Reflex Bilateral Patellar Deep Tendon Reflex 0 Absent Bilateral Achilles Deep Tendon Reflex 2+ Normal PT-OP-J Posture/Palpation/Skin Start: 01/18/21 12:03 Freq: Status: Active Protocol: Document 01/18/21 08:15 HH (Rec: 01/18/21 12:26 [email or web address]) Posture Evaluation Position Standing Pelvis Posture Posterior Tilted Knee Posture (L) Excess Flexion,(R) Excess Flexion PT-OP-K Range of Motion Start: 01/18/21 12:03 Freq: Status: Active Protocol: Document 01/18/21 08:15 HH (Rec: 01/18/21 12:26 [email or web address]) Lumbar Spine Range of Motion Lumbar Spine Active Degrees Testing Position Standing Comments able to reach toes, no pain noted SB to L= 23 inches from floor , stretching sensation at R side SB to R= 23 inches from floor, with pain at R L4L5 extension= shoulders at heels, discomfort at R L4L5 Hip Goniometric Range of Motion Hip Right Active Hip ROM WFL Yes Straight Leg Raise 83 Left Active Hip ROM WFL Yes Straight Leg Raise 85 PT-OP-L Special Tests Start: 01/18/21 12:03 Freq: Status: Active Protocol: Document 01/18/21 08:15 HH (Rec: 01/18/21 12:26 HH [email or web address]) Special Tests Lumbar Spine Special Tests Slump Test Results -ve Standing Flexion Test Results pain relief quadrant test Test Results +ve R Comments extension, SB and rotation to R passively with pain at l4-L5 Straight Leg Raise Test Results -ve PT-OP-M Strength Start: 01/18/21 12:03 Freq: Status: Active Protocol: Document 01/18/21 08:15 HH (Rec: 01/18/21 12:26 HH [email or web address]) Hip Strength Hip Manual Muscle Testing Right Flexion (L2) 5 Normal Extension (S1) 5 Normal Abduction 4 Good Adduction 5 Normal Comments pain with resistive R abduction Left Flexion (L2) 5 Normal Extension (S1) 5 Normal Abduction 5 Normal Adduction 5 Normal Knee Strength Knee Manual Muscle Testing Left Flexion (S2) 5 Normal Extension (L3) 5 Normal Right Flexion (S2) 5 Normal Extension (L3) 5 Normal PT-OP-Q Treatments Start: 01/18/21 12:03 Freq: Status: Active Protocol: Document 02/08/21 10:30 AW (Rec: 02/08/21 10:32 AW [id number]) Therapeutic Exercises Supine Exercises post tilt+bridge Supine Exercise Name knees bent less discomfort on LB than straight Side bilateral Reps/Minutes 3x5 Comments cues for post tilt with lift off during bridge piriformis stretch Side bilateral Reps/Minutes 20 sec hold x5 Comments reviewed HEP knee to chest Side bilateral Reps/Minutes 20 sec hold x5 Comments reviewed HEP Sidelying Exercises open book Sidelying Exercise Name head with hands - added to HEP Side bilateral Equipment Used pillow support for head to avoid extension Reps/Minutes 2x8 reps Comments good positional awareness Sitting Exercises Lumbar flexion Sitting Exercise Name HEP review Reps/Minutes 30 x2 Comments walked hands right and left Other Exercises cat cow Other Exercise Name cat cow Reps/Minutes x10 Comments with flexion bias; extension to neutral Manual Therapy Treatment Soft Tissue Mobilization ES, paraspinals Body Location T10- T6 Mobilization Type Myofascial Release,Strumming Intensity/Depth Moderate Body Position Prone Comments tone improved post-STM Joint Mobilizations TS PAs Joint T7- T10 Direction PA Grade III Body Position Prone PT-OP-T Assessment and Plan Start: 01/18/21 12:03 Freq: Status: Active Protocol: Document 02/08/21 10:30 AW (Rec: 02/08/21 12:22 AW [email or web address]) Physical Therapy Assessment Goals HEP Impairment pt does not ahve a HEP Short Term Goal (STG) pt will be compliant to complete his daily HEP safely and independently STG Duration 4 weeks activity tolerance Impairment pain with standing and walking Short Term Goal (STG) pt will be able to stand >10 mins and walk 1 mile without increase in LBP STG Duration 4 weeks Fore[employer] D[employer] Goal (LTG) pt will be able to stand >30 mins and walk 3 mile/ day without LBP LTG Duration 8 weeks owestry Impairment pt scores 20 on owestry Short Term Goal (STG) pt will show improved overall quality of life by scoring <10 on owestry STG Duration 6 weeks Assessment Summary Assessment Assessed Melanie Mathew [place] which was negative bilaterally. Discussed possible causes of dizziness during exercise and educated pt to use pillow support under head to improve cervical positioning and avoid extension during exercise. Pt did not have any dizziness during session today. Again reviewed HEP for indpenendent performance, adding cat cow with TA awareness . Physical Therapy Plan Frequency and Duration Frequency of Treatment 1x/Week Duration of Treatment 8 weeks Plan of Care Start Date 02/07/21 Plan of Care End Date 03/19/21 Therapeutic Interventions Therapeutic Interventions Aquatic Therapy,Balance Training,Gait Training,Home Exercise Program,Joint Mobilizations,Manual Therapy, Neuromuscular Re-education, Patient/Caregiver Education, Self-Care/Home Management,Soft Tissue Mobilization,Taping, Therapeutic Activities, Therapeutic Exercises Modalities Cold Pack/Ice Massage,Electric Stimulation,Hot Packs, Infrared Therapy,Traction- Mechanical,Ultrasound Next Visit Focus/Plan Next Note Type Treatment Note Next Visit Plan Follow up on dizziness symptoms if improved cervical posture helped. Progress flexion-based exrx as tolerated
--- NOTE | 2021-02-16 16:15 | PT.OTN ---
Current Diagnoses Dorsalgia, unspecified (02/16/21) Physical Therapy Treatment Note PT-OP-A Visit Information Start: 01/18/21 12:03 Freq: Status: Active Protocol: Document 02/16/21 15:19 HH (Rec: 02/16/21 16:15 [id number]) Out-Patient Physical Therapy Visit Information Visit Information Visit Type Treatment Note Visit Start Time 15:16 Visit Stop Time 16:00 Total Visit Minutes 44 Visit Number 01/27 Number of MINK RANCHER Visits 0 PT-OP-B Current Condition Start: 01/18/21 12:03 Freq: Status: Active Protocol: Document 01/18/21 08:15 HH (Rec: 01/18/21 12:26 [email or web address]) Current Condition History of Current Condition Onset Date couple months ago Current Complaints LBP, radiating pain to R hip, difficulty in walking and standing History of Current Condition Carlos is a 85yo male here for his LBP with radiating pain down to his R buttock. There's no known injury but started around a few months ago. He noticed back pain when he stands and during walking, along with new onset of leg collpasing episode occasionally. Denies tingling and numbness sensation. He hasnt had any falls yet since he was able to catch himself. He stated bending over, sitting, and lying down immediately relieve his pain so he has been doing knee to chest stretch. Pt overall is very active and like to walk couple miles a day and like to do yardwork and lawnmowing. Prior Treatments and Tests x-ray at [facility] 01/04/21 Bones: Mild left scoliosis. No evidence of acute fracture. Multilevel degenerative endplate sclerosis and spurring. Diffuse facet arthropathy. Moderate narrowing of the L3-L4, L4-L5 and L5-S1 disc spaces. Personal Factors Other Personal Factors That May Effect seizures. Therapy/Recovery PT-OP-C Subjective Start: 01/18/21 12:03 Freq: Status: Active Protocol: Document 02/16/21 15:19 HH (Rec: 02/16/21 16:15 [id number]) OP-PT Subjective Patient Comments Patient Comments I think overall its getting better. i notice stretching does help me. Standing with pelvic tilt also helps. Patient Reported Progress Improving PT-OP-D Balance Start: 01/18/21 12:03 Freq: Status: Active Protocol: Document 01/18/21 08:15 HH (Rec: 01/18/21 12:26 [email or web address]) Balance Tests Single Limb Standing Single Limb- Right 6,12,20 Single Limb- Left 3,6,18 PT-OP-F Manual Assessment Start: 01/18/21 12:03 Freq: Status: Active Protocol: Document 01/18/21 08:15 HH (Rec: 01/18/21 12:26 [email or web address]) Manual Assessments Soft Tissue Assessment Soft Tissue Mobility Assessment hypertonicity at R QL at L4-L5 region PT-OP-G Mobility & Gait Start: 01/18/21 12:03 Freq: Status: Active Protocol: Document 01/18/21 08:15 HH (Rec: 01/18/21 12:26 [email or web address]) OP Gait Assessment Comments Gait Comments dec stance time on RLE PT-OP-H Neuro Start: 01/18/21 12:03 Freq: Status: Active Protocol: Document 01/18/21 08:15 HH (Rec: 01/18/21 12:26 [email or web address]) Sensation Evaluation Gross Sensation Gross Sensation WNL Deep Tendon Reflex & Clonus Assessment Deep Tendon Reflex Bilateral Patellar Deep Tendon Reflex 0 Absent Bilateral Achilles Deep Tendon Reflex 2+ Normal PT-OP-J Posture/Palpation/Skin Start: 01/18/21 12:03 Freq: Status: Active Protocol: Document 01/18/21 08:15 HH (Rec: 01/18/21 12:26 [email or web address]) Posture Evaluation Position Standing Pelvis Posture Posterior Tilted Knee Posture (L) Excess Flexion,(R) Excess Flexion PT-OP-K Range of Motion Start: 01/18/21 12:03 Freq: Status: Active Protocol: Document 01/18/21 08:15 HH (Rec: 01/18/21 12:26 [email or web address]) Lumbar Spine Range of Motion Lumbar Spine Active Degrees Testing Position Standing Comments able to reach toes, no pain noted SB to L= 23 inches from floor , stretching sensation at R side SB to R= 23 inches from floor, with pain at R L4L5 extension= shoulders at heels, discomfort at R L4L5 Hip Goniometric Range of Motion Hip Right Active Hip ROM WFL Yes Straight Leg Raise 83 Left Active Hip ROM WFL Yes Straight Leg Raise 85 PT-OP-L Special Tests Start: 01/18/21 12:03 Freq: Status: Active Protocol: Document 01/18/21 08:15 HH (Rec: 01/18/21 12:26 [email or web address]) Special Tests Lumbar Spine Special Tests Slump Test Results -ve Standing Flexion Test Results pain relief quadrant test Test Results +ve R Comments extension, SB and rotation to R passively with pain at l4-L5 Straight Leg Raise Test Results -ve PT-OP-M Strength Start: 01/18/21 12:03 Freq: Status: Active Protocol: Document 01/18/21 08:15 HH (Rec: 01/18/21 12:26 [email or web address]) Hip Strength Hip Manual Muscle Testing Right Flexion (L2) 5 Normal Extension (S1) 5 Normal Abduction 4 Good Adduction 5 Normal Comments pain with resistive R abduction Left Flexion (L2) 5 Normal Extension (S1) 5 Normal Abduction 5 Normal Adduction 5 Normal Knee Strength Knee Manual Muscle Testing Left Flexion (S2) 5 Normal Extension (L3) 5 Normal Right Flexion (S2) 5 Normal Extension (L3) 5 Normal PT-OP-Q Treatments Start: 01/18/21 12:03 Freq: Status: Active Protocol: Document 02/16/21 15:19 HH (Rec: 02/16/21 16:15 [id number]) Therapeutic Exercises Supine Exercises post tilt+bridge Supine Exercise Name knees bent less discomfort on LB than straight Side bilateral Reps/Minutes 3x5 Comments cues for post tilt with lift off during bridge knee to chest Side bilateral Reps/Minutes 20 sec hold x5 Comments reviewed HEP Sitting Exercises Lumbar flexion Sitting Exercise Name HEP review Reps/Minutes 30 x2 Comments walked hands right and left Standing Exercises squat Standing Exercise Name use of grab bar Reps/Minutes 8x2 Comments no discomfort. pelvict tilt Comments min cues on glute activation noted. Other Exercises cat cow Other Exercise Name cat cow Reps/Minutes x10 Comments with flexion bias; extension to neutral Manual Therapy Treatment Soft Tissue Mobilization ES, paraspinals Body Location T10- T6 Mobilization Type Myofascial Release,Strumming Intensity/Depth Moderate Body Position Prone Comments tone improved post-STM PT-OP-T Assessment and Plan Start: 01/18/21 12:03 Freq: Status: Active Protocol: Document 02/16/21 15:19 HH (Rec: 02/16/21 16:15 HH [id number]) Physical Therapy Assessment Goals HEP Impairment pt does not ahve a HEP Short Term Goal (STG) pt will be compliant to complete his daily HEP safely and independently STG Duration 4 weeks activity tolerance Impairment pain with standing and walking Short Term Goal (STG) pt will be able to stand >10 mins and walk 1 mile without increase in LBP STG Duration 4 weeks Fdc Goal (LTG) pt will be able to stand >30 mins and walk 3 mile/ day without LBP LTG Duration 8 weeks owestry Impairment pt scores 20 on owestry Short Term Goal (STG) pt will show improved overall quality of life by scoring <10 on owestry STG Duration 6 weeks Assessment Summary Assessment Pt stated he has better understanding on his pain management by doing stretches and being aware on his lumbar position. Spent time educating pt on importance of lumbar flexion ROM ex and low impact strengthening ex 2-3 times a week with 20-30 mins per session. Added air squat to his HEP today. Physical Therapy Plan Frequency and Duration Frequency of Treatment 1x/Week Duration of Treatment 8 weeks Plan of Care Start Date 02/07/21 Plan of Care End Date 03/19/21 Therapeutic Interventions Therapeutic Interventions Aquatic Therapy,Balance Training,Gait Training,Home Exercise Program,Joint Mobilizations,Manual Therapy, Neuromuscular Re-education, Patient/Caregiver Education, Self-Care/Home Management,Soft Tissue Mobilization,Taping, Therapeutic Activities, Therapeutic Exercises Modalities Cold Pack/Ice Massage,Electric Stimulation,Hot Packs, Infrared Therapy,Traction- Mechanical,Ultrasound Next Visit Focus/Plan Next Note Type Treatment Note Next Visit Plan Follow up on dizziness symptoms if improved cervical posture helped. Progress flexion-based exrx as tolerated
--- NOTE | 2021-03-06 11:47 | PT.OTN ---
Current Diagnoses Dorsalgia, unspecified (03/06/21) Physical Therapy Treatment Note PT-OP-A Visit Information Start: 01/18/21 12:03 Freq: Status: Active Protocol: Document 03/06/21 11:16 HH (Rec: 03/06/21 11:46 [id number]) Out-Patient Physical Therapy Visit Information Visit Information Visit Type Treatment Note Visit Start Time 11:18 Visit Stop Time 11:41 Total Visit Minutes 23 Visit Number 02/26 Number of MACHINE ASSEMBLER SUPERVISOR Visits 0 PT-OP-B Current Condition Start: 01/18/21 12:03 Freq: Status: Active Protocol: Document 01/18/21 08:15 HH (Rec: 01/18/21 12:26 [email or web address]) Current Condition History of Current Condition Onset Date couple months ago Current Complaints LBP, radiating pain to R hip, difficulty in walking and standing History of Current Condition Carlos is a 85yo male here for his LBP with radiating pain down to his R buttock. There's no known injury but started around a few months ago. He noticed back pain when he stands and during walking, along with new onset of leg collpasing episode occasionally. Denies tingling and numbness sensation. He hasnt had any falls yet since he was able to catch himself. He stated bending over, sitting, and lying down immediately relieve his pain so he has been doing knee to chest stretch. Pt overall is very active and like to walk couple miles a day and like to do yardwork and lawnmowing. Prior Treatments and Tests x-ray at [facility] 01/04/21 Bones: Mild left scoliosis. No evidence of acute fracture. Multilevel degenerative endplate sclerosis and spurring. Diffuse facet arthropathy. Moderate narrowing of the L3-L4, L4-L5 and L5-S1 disc spaces. Personal Factors Other Personal Factors That May Effect seizures. Therapy/Recovery PT-OP-C Subjective Start: 01/18/21 12:03 Freq: Status: Active Protocol: Document 03/06/21 11:16 HH (Rec: 03/06/21 11:46 [id number]) OP-PT Subjective Patient Comments Patient Comments I went on a 10 day cruise trip with my motorcycle. My symptoms have been pretty much gone. No more leg collapse episodes and no more pain Patient Reported Progress Improving PT-OP-D Balance Start: 01/18/21 12:03 Freq: Status: Active Protocol: Document 01/18/21 08:15 HH (Rec: 01/18/21 12:26 [email or web address]) Balance Tests Single Limb Standing Single Limb- Right 6,12,20 Single Limb- Left 3,6,18 PT-OP-F Manual Assessment Start: 01/18/21 12:03 Freq: Status: Active Protocol: Document 01/18/21 08:15 HH (Rec: 01/18/21 12:26 [email or web address]) Manual Assessments Soft Tissue Assessment Soft Tissue Mobility Assessment hypertonicity at R QL at L4-L5 region PT-OP-G Mobility & Gait Start: 01/18/21 12:03 Freq: Status: Active Protocol: Document 01/18/21 08:15 HH (Rec: 01/18/21 12:26 [email or web address]) OP Gait Assessment Comments Gait Comments dec stance time on RLE PT-OP-H Neuro Start: 01/18/21 12:03 Freq: Status: Active Protocol: Document 01/18/21 08:15 HH (Rec: 01/18/21 12:26 [email or web address]) Sensation Evaluation Gross Sensation Gross Sensation WNL Deep Tendon Reflex & Clonus Assessment Deep Tendon Reflex Bilateral Patellar Deep Tendon Reflex 0 Absent Bilateral Achilles Deep Tendon Reflex 2+ Normal PT-OP-J Posture/Palpation/Skin Start: 01/18/21 12:03 Freq: Status: Active Protocol: Document 01/18/21 08:15 HH (Rec: 01/18/21 12:26 [email or web address]) Posture Evaluation Position Standing Pelvis Posture Posterior Tilted Knee Posture (L) Excess Flexion,(R) Excess Flexion PT-OP-K Range of Motion Start: 01/18/21 12:03 Freq: Status: Active Protocol: Document 01/18/21 08:15 HH (Rec: 01/18/21 12:26 [email or web address]) Lumbar Spine Range of Motion Lumbar Spine Active Degrees Testing Position Standing Comments able to reach toes, no pain noted SB to L= 23 inches from floor , stretching sensation at R side SB to R= 23 inches from floor, with pain at R L4L5 extension= shoulders at heels, discomfort at R L4L5 Hip Goniometric Range of Motion Hip Right Active Hip ROM WFL Yes Straight Leg Raise 83 Left Active Hip ROM WFL Yes Straight Leg Raise 85 PT-OP-L Special Tests Start: 01/18/21 12:03 Freq: Status: Active Protocol: Document 01/18/21 08:15 HH (Rec: 01/18/21 12:26 [email or web address]) Special Tests Lumbar Spine Special Tests Slump Test Results -ve Standing Flexion Test Results pain relief quadrant test Test Results +ve R Comments extension, SB and rotation to R passively with pain at l4-L5 Straight Leg Raise Test Results -ve PT-OP-M Strength Start: 01/18/21 12:03 Freq: Status: Active Protocol: Document 01/18/21 08:15 HH (Rec: 01/18/21 12:26 [email or web address]) Hip Strength Hip Manual Muscle Testing Right Flexion (L2) 5 Normal Extension (S1) 5 Normal Abduction 4 Good Adduction 5 Normal Comments pain with resistive R abduction Left Flexion (L2) 5 Normal Extension (S1) 5 Normal Abduction 5 Normal Adduction 5 Normal Knee Strength Knee Manual Muscle Testing Left Flexion (S2) 5 Normal Extension (L3) 5 Normal Right Flexion (S2) 5 Normal Extension (L3) 5 Normal PT-OP-Q Treatments Start: 01/18/21 12:03 Freq: Status: Active Protocol: Document 03/06/21 11:16 (Rec: 03/06/21 11:46 [id number]) Self-Care/Home Management Treatment Education Patient Education Body Mechanics,Home Exercise Program,Joint Protection,Pain Management,Posture Other Education reviewed all HEP today and recommended pt to continue his routine with flexion based stretching program everyday. Do interval walks if there;s symptoms for load management. I also reviewed his x-ray findings and pt shows good understanding. PT-OP-T Assessment and Plan Start: 01/18/21 12:03 Freq: Status: Active Protocol: Document 03/06/21 11:16 (Rec: 03/06/21 11:46 [id number]) Physical Therapy Assessment Goals HEP Impairment pt does not ahve a HEP Short Term Goal (STG) pt will be compliant to complete his daily HEP safely and independently STG Duration 4 weeks activity tolerance Impairment pain with standing and walking Short Term Goal (STG) pt will be able to stand >10 mins and walk 1 mile without increase in LBP STG Duration 4 weeks [employer] Ferry Operator Goal (LTG) pt will be able to stand >30 mins and walk 3 mile/ day without LBP LTG Duration 8 weeks owestry Impairment pt scores 20 on owestry Short Term Goal (STG) pt will show improved overall quality of life by scoring <10 on owestry STG Duration 6 weeks Progress Towards Goals Progress Towards Goals Goals Met Assessment Summary Assessment pt shows good progress with good routine with HEP. Pt has not had any pain/ leg collapsing episode anymore. I spent time to review all his HEP and x-ray report today. pt shows good understanding with his symptoms and POC. Pt feels ready to be DC from PT today. Physical Therapy Plan Frequency and Duration Frequency of Treatment 1x/Week Duration of Treatment 8 weeks Plan of Care Start Date 02/07/21 Plan of Care End Date 03/19/21 Therapeutic Interventions Therapeutic Interventions Aquatic Therapy,Balance Training,Gait Training,Home Exercise Program,Joint Mobilizations,Manual Therapy, Neuromuscular Re-education, Patient/Caregiver Education, Self-Care/Home Management,Soft Tissue Mobilization,Taping, Therapeutic Activities, Therapeutic Exercises Modalities Cold Pack/Ice Massage,Electric Stimulation,Hot Packs, Infrared Therapy,Traction- Mechanical,Ultrasound Discharge Physical Therapy Discharge Reasons Goals Met
== END 2021-04-05 14:50 | disposition home or self-care (01) ==
LOC: PHYS 11:15
PROVIDERS: PCP Internal Medicine; Referring Provider Internal Medicine; Visit Provider Internal Medicine
DX: M54.9 Dorsalgia, unspecified (principal)
CPT/HCPCS: 97110; 97140; 97161; 97535

== ENCOUNTER → 2023-05-26 11:40 | Outpatient (CLI) | payer MEDICARE, OTHER, SELFPAY ==
[2023-05-26 13:05] LABS: Alanine Aminotransferase 22 IU/L (<50); Albumin Globulin Ratio 1.5 (1.0-2.8); Alkaline Phosphatase 48 U/L (38-126); Aspartate Aminotransferase 27 IU/L (17-59); BUN Creatinine Ratio 21.3 (6-22); Blood Urea Nitrogen 26 mg/dL (9-20); Calcium 9.3 mg/dL (8.4-10.2); Carbon Dioxide 30 mmol/L (22-32); Chloride 103 mmol/L (98-107); Cholesterol 199 mg/dL (140-199); Estimated Glomerular Filt Rate 58 mL/min (>60); Globulin 2.6 g/dL (1.7-4.1); Glucose 94 mg/dL (80-110); HDL Cholesterol 44 mg/dL (40-60); HEMOLYSIS < 15 (0-50); LDL Cholesterol Calculated 136 mg/dL (<100); Potassium 4.8 mmol/L (3.4-5.1); Sodium 137 mmol/L (137-145); Total Protein 6.6 g/dL (6.3-8.2); Triglycerides 94 mg/dL (35-150)
[2023-05-26 13:53] LABS: TSH w/ Reflex to FT4 1.83 uIU/mL (0.47-4.68)
== END ==
PROVIDERS: PCP Internal Medicine; Referring Provider Internal Medicine; Visit Provider Internal Medicine
DX: E78.5 Hyperlipidemia, unspecified (principal); R05.3 Chronic cough; E03.9 Hypothyroidism, unspecified
CPT/HCPCS: 36415; 80053; 80061; 84443

== ENCOUNTER → 2023-06-18 09:42 | Outpatient (CLI) | payer MEDICARE, OTHER, SELFPAY ==
--- NOTE | 2023-07-08 08:34 | PC.NURSE ---
Critical Zio Event: pt zio report returned (unconfirmed) w/ pauses and 3rd deg. AVB. Referring physician was notified. Since Dr. Marques is clinic reader of zio reports, no fax was sent. Phone call was received and Dr. Marques is aware.
== END ==
PROVIDERS: PCP Internal Medicine; Referring Provider Internal Medicine; Visit Provider Internal Medicine
DX: R00.1 Bradycardia, unspecified (principal)
CPT/HCPCS: 93242

== ENCOUNTER → 2023-06-29 10:43 | Outpatient (CLI) | payer MEDICARE, OTHER, SELFPAY ==
--- NOTE | 2023-06-29 10:45 | DI.MRI.S_ITS ---
PROCEDURE: MR SHOULDER RT WO CON INDICATIONS: Pain in right shoulder TECHNIQUE: Noncontrast oblique coronal T2 fast spin echo with fat saturation, oblique sagittal T1 spin echo and T2 fast spin echo with fat saturation, axial T1 spin echo and T2 fast spin echo with fat saturation through the shoulder. COMPARISON: None. FINDINGS: Image quality: Excellent. Rotator cuff: There is full-thickness rupture of distal supraspinatus at its insertion on the humeral head with up to 3.6 cm medial retraction of torn tendon fibers to the level of acromion. Moderate grade articular surface partial-thickness tear involving distal infraspinatus at its insertion on the humeral head is seen. Low-grade intrasubstance partial-thickness tear involving distal subscapularis is also noted. Sagittal images demonstrate mild to moderate supraspinatus muscle atrophy. Bones and bursae: No bone marrow contusions or fractures. Moderate acromioclavicular joint osteoarthritic changes are seen with joint space narrowing, subchondral sclerosis and downward osteophyte formation depressing the musculotendinous junction of supraspinatus. The acromion demonstrates conventional anatomy, without an os acromiale. There is moderate amount of subacromial subdeltoid bursal fluid, no gross loose bodies. Capsule and soft tissues: Fraying of superior anterior labrum with signal abnormality at 12 to 1 o'clock position is seen suggestive of subtle superior anterior labral tear. The long head of the biceps tendon is thickened at the level of greater tuberosity. The rotator interval appears normal, without fibrosis. The coracohumeral ligament is normal in thickness. IMPRESSION: 1. Full-thickness rupture of distal supraspinatus at its insertion on humeral head with up to 3.6 cm medial retraction of torn tendon fibers to the level of acromion. Moderate grade articular surface partial-thickness tear involving distal infraspinatus. Low-grade intrasubstance partial-thickness tear involving distal subscapularis. Mild to moderate supraspinatus muscle atrophy. 2. Moderate acromioclavicular joint osteoarthritis. No fracture or dislocation. Moderate amount of subacromial subdeltoid bursal fluid, no gross loose bodies. 3. Suggestion of subtle superior anterior labral tear at 12 to 1 o'clock position. 4. Proximal long head of biceps tendinosis. Dictated by: Guy Casillas M.D. on 06/30/2023 at 8:52 Approved by: Guy Casillas M.D. on 06/30/2023 at 8:55
== END ==
PROVIDERS: PCP Internal Medicine; Referring Provider Orthopaedic Surgery; Visit Provider Orthopaedic Surgery
DX: M75.121 Complete rotator cuff tear or rupture of right shoulder, not specified as traumatic (principal); M19.011 Primary osteoarthritis, right shoulder; M25.511 Pain in right shoulder; R29.898 Other symptoms and signs involving the musculoskeletal system
CPT/HCPCS: 73221

== ENCOUNTER → 2023-06-30 14:38 | Outpatient (CLI) | payer MEDICARE, OTHER, SELFPAY | PROVIDERS: PCP Internal Medicine; Visit Provider Physician Assistant | DX: R30.0 Dysuria (principal) | CPT/HCPCS: 87077; 87086; 87186 ==

== ENCOUNTER 2023-07-08 11:51 | Emergency (ER) | payer MEDICARE, OTHER, SELFPAY ==
[2023-07-08] VITALS (9 sets, daily range): BP systolic 117–136; BP diastolic 65–81; PULSE 35–85; RESP 14–33; TEMP 36.7; O2SAT 91–99; BMI 27.0
--- NOTE | 2023-07-08 12:02 | DI.RAD.S_ITS ---
PROCEDURE: XR CHEST 1V INDICATIONS: heart block TECHNIQUE: One view of the chest was acquired. COMPARISON: None. FINDINGS: Surgical changes and devices: None. Lungs and pleura: Lungs are clear. Mild linear scarring or atelectasis at the left lung base. No pleural effusions or pneumothorax. Mediastinum: Mediastinal contours appear normal. Heart size is normal. Bones and chest wall: No suspicious bony lesions. Overlying soft tissues appear unremarkable. IMPRESSION: No acute cardiopulmonary abnormality is seen. Approved by: Remberto Ricks M.D. on 07/08/2023 at 12:38
--- NOTE | 2023-07-08 12:17 | ED.ARRPALP ---
HPI - Arrhythmia/Palpitations General Chief Complaint: Arrhythmia/Palpitations Stated Complaint: sent by dr Marques, heart problems Time Seen by Provider: 07/08/23 11:57 Source: patient Mode of arrival: Ambulatory History of Present Illness HPI narrative: 87-year-old male with history of seizure disorder presents by private vehicle from his primary care doctor's office for abnormal heart monitor. Patient was at a regular wellness check 1 month ago when he told his doctor that at various different appointments he was noted to have heart rates anywhere from the 30s to 80s. His primary care doctor ordered a Holter monitor, which the patient wore for a week. The results of the Holter monitor returned today which were concerning for complete heart block with up to 3.5 second pauses. Patient was instructed to go to the emergency department immediately. He declined EMS transport and decided to present by private vehicle. Patient states that he has felt completely fine throughout this last month. He has had musculoskeletal left shoulder and left toe issues, however these have not stopped him from exercising daily. He denies syncope, dyspnea, lightheadedness, chest pain, weakness, any other complaints. Related Data Home Medications Medication Instructions Recorded Confirmed MacularProtect Complete 2 tab PO DAILY 01/04/21 06/30/23 ProxClear Application See Rx Instructions topical BID 01/04/21 06/30/23 toenail fungus lamotrigine 25 mg tablet 75 mg PO BID 01/04/21 06/30/23 WholeMega Fish Oil 2 tab PO DAILY 05/08/23 06/30/23 lysine 1,000 mg tablet 2,000 mg PO DAILY 05/08/23 06/30/23 Previous Rx's Medication Instructions Recorded clotrimazole-betamethasone 1 1 applic topical TID PRN rash #45 05/08/23 %-0.05 % topical cream grams Allergies Allergy/AdvReac Type Severity Reaction Status Date / Time No Known Drug Allergies Allergy Verified 07/08/23 12:06 Review of Systems Review of Systems Narrative: Negative except as noted above Patient History Medical History (Updated 07/08/23 @ 13:59 by Bebe Corona MD) Plantar warts (~194) Allergies (~1947) Lower back pain (~2019) Shoulder pain (~2019) COVID Tinnitus (~2014) Recurrent sinusitis (~2019) Hyperlipidemia, unspecified (02/27/11) 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) Surgical History Anesthesia History of surgery (~1987) History of cataract removal with insertion of prosthetic lens History of tonsillectomy Family History Brother Age: 79 Cancer Mother Cancer Blood disorder Sister Age: 91 Diabetes mellitus Father History of heart disease Social History Smoking Status: Never smoker Smoking Status: Never smoker alcohol intake frequency: holidays/special occasions only Substance Use Type: does not use Exam Initial Vital Signs Initial Vital Signs: Vital Signs Temperature 98.1 F 07/08/23 11:59 Pulse Rate 85 07/08/23 11:59 Respiratory Rate 14 07/08/23 11:59 Blood Pressure 130/72 07/08/23 11:59 Pulse Oximetry 96 07/08/23 11:59 Oxygen Delivery Method Room Air 07/08/23 11:59 Const: Awake, alert, no acute distress, nontoxic appearing Eyes: PERRL, EOMI, conjunctiva normal ENT: Atraumatic, dentition normal, mucous membranes moist Cardiac: regular rate, regular rhythm RESP: unlabored, clear bilaterally, no wheezing GI: Atraumatic, soft, nontender, nondistended, no rebound, no guarding MSK: Atraumatic, full range of motion, pulses equal Skin: Warm, Dry, intact, no rashes Neuro: AO x3, CN II-XII grossly intact, moves all extremities Psych: affect normal, mood normal, not suicidal, not homicidal Course Orders Ordered: ED Orders 07/08/23 12:02 Chest [XR chest 1V] Stat 07/08/23 12:11 EKG-12 Lead Routine 07/08/23 12:18 CBC Auto Diff [Complete Blood Count AUTO DIFF] Stat CMP [Comprehensive Metabolic Panel] Stat MAG [Magnesium] Stat PT [Prothrombin Time INR] Stat Troponin & CK Cardiac Panel Stat Vital Signs Vital signs: Vital Signs - 8 hr 07/08/23 11:59 07/08/23 12:04 07/08/23 12:04 Temperature 98.1 F Pulse Rate 85 81 Respiratory Rate 14 16 Blood Pressure 130/72 130/72 Pulse Oximetry 96 96 Oxygen Delivery Method Room Air 07/08/23 12:30 07/08/23 12:30 07/08/23 12:46 Temperature Pulse Rate 80 Respiratory Rate Blood Pressure 119/75 129/73 Pulse Oximetry 97 Oxygen Delivery Method 07/08/23 12:46 07/08/23 13:00 07/08/23 13:00 Temperature Pulse Rate 80 36 L Respiratory Rate 33 H 16 Blood Pressure 122/69 Pulse Oximetry 96 98 Oxygen Delivery Method Room Air 07/08/23 13:00 07/08/23 13:15 07/08/23 13:15 Temperature Pulse Rate 80 63 Respiratory Rate 30 H 18 Blood Pressure 130/81 Pulse Oximetry 97 99 Oxygen Delivery Method 07/08/23 13:30 07/08/23 13:30 07/08/23 13:45 Temperature Pulse Rate 81 47 L Respiratory Rate 16 18 Blood Pressure 136/77 Pulse Oximetry 96 91 Oxygen Delivery Method 07/08/23 13:45 07/08/23 14:00 07/08/23 14:00 Temperature Pulse Rate 35 L 51 L Respiratory Rate 18 Blood Pressure 117/65 123/72 Pulse Oximetry 98 Oxygen Delivery Method MDM - Arrhythmia/Palpitations Differential Diagnosis Differential diagnosis: Likely palpitations, ventricular premature beats and other (complete heart block) Lab Data 07/08/23 12:18 07/08/23 12:18 Labs: Lab Results 07/08/23 Range/Units 12:18 WBC 18.5 H (4.5-11.0) X10^3/uL RBC 4.97 (4.5-5.9) X10^6/uL Hgb 14.7 (13.5-17.5) g/dL Hct 44.0 (41-53) % MCV 88.6 (80-100) fL MCH 29.7 (26-34) PG MCHC 33.5 (30-36) % RDW 13.5 (11.6-14.8) % Plt Count 289 (150-400) X10^3/uL Neut % (Auto) 85.5 H (50-75) % Lymph % (Auto) 7.1 L (25-40) % [place] % (Auto) 6.8 (3-14) % Eos % (Auto) 0.3 L (2-4) % Baso % (Auto) 0.3 (0-2) % Neut # (Auto) 15585 H (6865-3820) /uL Lymph # (Auto) 1300 (7311-8553) /uL [place] # (Auto) 1300 H (0-900) /uL Eos # (Auto) 100 (0-450) /uL Baso # (Auto) 100 (0-100) /uL PT 15.6 H (9.4-12.5) SECONDS INR 1.4 H (0.9-1.3) Sodium 134 L (137-145) mmol/L Potassium 4.3 (3.4-5.1) mmol/L Chloride 103 (98-107) mmol/L Carbon Dioxide 25 (22-32) mmol/L BUN 24 H (9-20) mg/dL Creatinine 1.02 (0.66-1.25) mg/dL Estimated GFR > 60 (>60) mL/min BUN/Creatinine Ratio 23.5 H (6-22) Glucose 99 (80-110) mg/dL Calcium 9.1 (8.4-10.2) mg/dL Magnesium 2.2 (1.6-2.3) mg/dL Total Bilirubin 0.9 (0.2-1.3) mg/dL AST 28 (17-59) IU/L ALT 22 (<50) IU/L Alkaline Phosphatase 62 (38-126) U/L Total Creatine Kinase 61 (55-170) U/L Troponin I 0.025 (0.01-0.034) ng/mL Total Protein 6.8 (6.3-8.2) g/dL Albumin 3.9 (3.5-5.0) g/dL Globulin 2.9 (1.7-4.1) g/dL Albumin/Globulin Ratio 1.3 (1.0-2.8) ECG Data Interpretation: Bradycardia, rate 43 beats per minute. Complete heart block. No STEMI. MDM Narrative Medical decision making narrative: This is a overall well-appearing patient with heart block noted on outside Holter monitor. While resting in bed patient seems to stay about 80 beats per minute, however he does have brief pauses and dips into 30-40 beats per minute. Patient remains asymptomatic throughout each of these incidents and states that since he brought this issue to his doctor's attention 1 month ago he has not had any concerning symptoms in his felt in his usual state of health. Laboratory work and imaging reviewed. No electrolyte abnormalities. I discussed the patient's case with Dr. Ball of electrophysiology at [facility]. Dr. Ball reviewed the case and stated he will likely need a pacemaker, however based on the fact that patient has never had symptoms and this was more or less an incidental finding it is reasonable to come on an outpatient basis for pacemaker placement. He would do it this week, however he is out of town. I discussed the results of all findings at length with the patient and at bedside. I offered the patient transfer today to a tertiary center for electrophysiology evaluation and probable pacemaker placement, or the patient could choose to follow up in 1 week at [facility] for pacemaker placement. I explained that if the patient chooses to follow up outpatient he does run the risk of complete heart block progressing to asystole and . Patient states that since this has been ongoing for at least a month if not longer and he has been asymptomatic he is comfortable going home and following up on an outpatient basis. at bedside agrees. Dr. Ball informed of patient's plan to follow up next week, and Dr. Ball took down the patient's name, date, phone number and he will contact the patient for follow up. Patient and given strongly strict return precautions. Discharge Plan Departure Patient Disposition: Home Clinical Impression: CHB (complete heart block) Instructions: DI for Heart Block Prescriptions: No Action lamotrigine 25 mg tablet 75 mg PO BID Patient Comments: Plans to increase. MacularProtect Complete 2 tab PO DAILY ProxClear Application See Rx Instructions topical BID Rx Instructions: 1 application topical twice a day; lysine 1,000 mg tablet 2,000 mg PO DAILY WholeMega Fish Oil 2 tab PO DAILY clotrimazole-betamethasone 1-0.05 % cream 1 applic Topical TID PRN (Reason: rash) Qty: 45 3RF Rx Instructions: Do not apply more than 2 weeks. Steroid med. Take 1 week break before reapplying. Referrals: Satnam Ball MD [Physician] - Dionicio Marques MD [Primary Care Provider] - Stand Alone Forms: Patient Portal/API
[2023-07-08 12:27] LABS: Add Manual Diff / Slide Review NO; Basophils Absolute Auto 100 /uL (0-100); Basophils Percent Auto 0.3 % (0-2); Eosinophils Absolute Auto 100 /uL (0-450); Eosinophils Percent Auto 0.3 % (2-4); Hemoglobin 14.7 g/dL (13.5-17.5); Lymphocytes Absolute Auto 1300 /uL (1100-4500); Lymphocytes Percent Auto 7.1 % (25-40); Mean Corpuscular HGB Conc 33.5 % (30-36); Mean Corpuscular Hemoglobin 29.7 PG (26-34); Mean Corpuscular Volume 88.6 fL (80-100); Monocytes Absolute Auto 1300 /uL (0-900); Monocytes Percent Auto 6.8 % (3-14); Neutrophils Absolute Auto 15800 /uL (1500-7000); Neutrophils Percent Auto 85.5 % (50-75); Platelet Count 289 X10^3/uL (150-400); Red Blood Cell Count 4.97 X10^6/uL (4.5-5.9); Red Cell Distribution Width 13.5 % (11.6-14.8); White Blood Cell Count 18.5 X10^3/uL (4.5-11.0)
--- NOTE | 2023-07-08 12:31 | PC.NURSE ---
Addendum entered by Guillermina East R.N. 07/08/23 13:12: Pt treated for UTI last week with last po abx yesterday. HR on monitor 36 at 1300; Dr. Corona notified. Pt denies light headedness at the time Original Note: pt fell on right shoulder last night on slippery grass. Pt states he didn't feel faint or dizzy.
[2023-07-08 12:34] LABS: INR 1.4 (0.9-1.3); Prothrombin Time 15.6 SECONDS (9.4-12.5)
[2023-07-08 12:43] LABS: Alanine Aminotransferase 22 IU/L (<50); Albumin 3.9 g/dL (3.5-5.0); Albumin Globulin Ratio 1.3 (1.0-2.8); Alkaline Phosphatase 62 U/L (38-126); Aspartate Aminotransferase 28 IU/L (17-59); BUN Creatinine Ratio 23.5 (6-22); Bilirubin Total 0.9 mg/dL (0.2-1.3); Blood Urea Nitrogen 24 mg/dL (9-20); Calcium 9.1 mg/dL (8.4-10.2); Carbon Dioxide 25 mmol/L (22-32); Chloride 103 mmol/L (98-107); Creatine Kinase 61 U/L (55-170); Estimated Glomerular Filt Rate > 60 mL/min (>60); Globulin 2.9 g/dL (1.7-4.1); Glucose 99 mg/dL (80-110); HEMOLYSIS < 15 (0-50); Magnesium 2.2 mg/dL (1.6-2.3); Potassium 4.3 mmol/L (3.4-5.1); Sodium 134 mmol/L (137-145); Total Protein 6.8 g/dL (6.3-8.2)
[2023-07-08 12:55] LABS: Troponin I 0.025 ng/mL (0.01-0.034)
== END 2023-07-08 14:25 | disposition home or self-care (01) ==
PROVIDERS: Emergency Provider Emergency Medicine; PCP Internal Medicine
DX: I44.2 Atrioventricular block, complete (principal)
CPT/HCPCS: 36415; 71045; 80053; 82550; 83735; 84484; 85025; 85610; 93005; 99283; 99284

== ENCOUNTER → 2023-07-18 15:16 | Outpatient (CLI) | payer MEDICARE, OTHER, SELFPAY ==
[2023-07-18 17:23] LABS: Add Manual Diff / Slide Review NO; Basophils Absolute Auto 0 /uL (0-100); Basophils Percent Auto 0.6 % (0-2); Eosinophils Absolute Auto 200 /uL (0-450); Eosinophils Percent Auto 2.2 % (2-4); Hematocrit 44.4 % (41-53); Lymphocytes Absolute Auto 1600 /uL (1100-4500); Lymphocytes Percent Auto 19.6 % (25-40); Mean Corpuscular HGB Conc 33.7 % (30-36); Mean Corpuscular Hemoglobin 29.9 PG (26-34); Mean Corpuscular Volume 88.6 fL (80-100); Monocytes Absolute Auto 600 /uL (0-900); Monocytes Percent Auto 7.6 % (3-14); Neutrophils Absolute Auto 5700 /uL (1500-7000); Platelet Count 363 X10^3/uL (150-400); Red Blood Cell Count 5.01 X10^6/uL (4.5-5.9); Red Cell Distribution Width 13.3 % (11.6-14.8); White Blood Cell Count 8.2 X10^3/uL (4.5-11.0)
== END ==
PROVIDERS: PCP Internal Medicine; Referring Provider Physician Assistant Medical; Visit Provider Physician Assistant Medical
DX: I44.2 Atrioventricular block, complete (principal)
CPT/HCPCS: 36415; 85025

== ENCOUNTER → 2023-10-20 11:35 | Outpatient (CLI) | payer MEDICARE, OTHER, SELFPAY ==
[2023-10-20 12:52] LABS: Hematocrit 47.2 % (41-53); Mean Corpuscular HGB Conc 33.8 % (30-36); Mean Corpuscular Hemoglobin 29.8 PG (26-34); Mean Corpuscular Volume 88.1 fL (80-100); Platelet Count 210 X10^3/uL (150-400); Red Blood Cell Count 5.35 X10^6/uL (4.5-5.9); Red Cell Distribution Width 14.5 % (11.6-14.8); White Blood Cell Count 5.8 X10^3/uL (4.5-11.0)
[2023-10-20 13:06] LABS: Alanine Aminotransferase 19 IU/L (<50); Albumin 4.1 g/dL (3.5-5.0); Albumin Globulin Ratio 1.5 (1.0-2.8); Alkaline Phosphatase 55 U/L (38-126); Aspartate Aminotransferase 29 IU/L (17-59); BUN Creatinine Ratio 18.6 (6-22); Bilirubin Total 0.9 mg/dL (0.2-1.3); Blood Urea Nitrogen 24 mg/dL (9-20); Calcium 9.1 mg/dL (8.4-10.2); Carbon Dioxide 29 mmol/L (22-32); Chloride 107 mmol/L (98-107); Estimated Glomerular Filt Rate 54 mL/min (>60); Globulin 2.8 g/dL (1.7-4.1); Glucose 89 mg/dL (80-110); HEMOLYSIS < 15 (0-50); Potassium 4.7 mmol/L (3.4-5.1); Sodium 140 mmol/L (137-145); Total Protein 6.9 g/dL (6.3-8.2)
== END ==
PROVIDERS: PCP Internal Medicine; Referring Provider Podiatrist; Visit Provider Podiatrist
DX: B35.1 Tinea unguium (principal)
CPT/HCPCS: 36415; 80053; 85027

== ENCOUNTER → 2024-02-13 11:19 | Outpatient (CLI) | payer MEDICARE, OTHER, SELFPAY ==
[2024-02-13 13:13] LABS: Hematocrit 46.2 % (41-53); Hemoglobin 15.7 g/dL (13.5-17.5); Mean Corpuscular Hemoglobin 30.6 PG (26-34); Mean Corpuscular Volume 90.1 fL (80-100); Platelet Count 207 X10^3/uL (150-400); Red Blood Cell Count 5.13 X10^6/uL (4.5-5.9); Red Cell Distribution Width 13.8 % (11.6-14.8); White Blood Cell Count 5.4 X10^3/uL (4.5-11.0)
[2024-02-13 13:29] LABS: Alanine Aminotransferase 20 IU/L (<50); Albumin 3.8 g/dL (3.5-5.0); Albumin Globulin Ratio 1.7 (1.0-2.8); Alkaline Phosphatase 56 U/L (38-126); Aspartate Aminotransferase 29 IU/L (17-59); BUN Creatinine Ratio 18.6 (6-22); Bilirubin Total 0.8 mg/dL (0.2-1.3); Blood Urea Nitrogen 21 mg/dL (9-20); Calcium 8.5 mg/dL (8.4-10.2); Carbon Dioxide 27 mmol/L (22-32); Chloride 108 mmol/L (98-107); Estimated Glomerular Filt Rate > 60 mL/min (>60); Globulin 2.3 g/dL (1.7-4.1); Glucose 87 mg/dL (80-110); HEMOLYSIS < 15 (0-50); Potassium 4.9 mmol/L (3.4-5.1); Sodium 138 mmol/L (137-145); Total Protein 6.1 g/dL (6.3-8.2)
== END ==
LOC: LAB 11:20
PROVIDERS: PCP Internal Medicine; Referring Provider Podiatrist; Visit Provider Podiatrist
DX: B35.1 Tinea unguium (principal)
CPT/HCPCS: 36415; 80053; 85027

== ENCOUNTER → 2024-03-17 11:22 | Outpatient (CLI) | payer MEDICARE, OTHER, SELFPAY ==
[2024-03-17 16:58] LABS: Alanine Aminotransferase 16 IU/L (<50); Albumin 3.7 g/dL (3.5-5.0); Albumin Globulin Ratio 1.4 (1.0-2.8); Alkaline Phosphatase 57 U/L (38-126); Aspartate Aminotransferase 28 IU/L (17-59); BUN Creatinine Ratio 16.8 (6-22); Bilirubin Total 0.8 mg/dL (0.2-1.3); Blood Urea Nitrogen 19 mg/dL (9-20); Calcium 8.6 mg/dL (8.4-10.2); Carbon Dioxide 26 mmol/L (22-32); Chloride 107 mmol/L (98-107); Estimated Glomerular Filt Rate > 60 mL/min (>60); Globulin 2.7 g/dL (1.7-4.1); Glucose 72 mg/dL (80-110); HEMOLYSIS < 15 (0-50); Potassium 4.4 mmol/L (3.4-5.1); Sodium 137 mmol/L (137-145); Total Protein 6.4 g/dL (6.3-8.2)
[2024-03-17 16:59] LABS: Add Manual Diff / Slide Review NO; Basophils Absolute Auto 100 /uL (0-100); Basophils Percent Auto 0.9 % (0-2); Eosinophils Absolute Auto 200 /uL (0-450); Eosinophils Percent Auto 2.5 % (2-4); Hematocrit 46.8 % (41-53); Hemoglobin 15.8 g/dL (13.5-17.5); Lymphocytes Absolute Auto 1500 /uL (1100-4500); Lymphocytes Percent Auto 25.5 % (25-40); Mean Corpuscular HGB Conc 33.8 % (30-36); Mean Corpuscular Hemoglobin 30.4 PG (26-34); Mean Corpuscular Volume 89.9 fL (80-100); Monocytes Absolute Auto 400 /uL (0-900); Monocytes Percent Auto 7.6 % (3-14); Neutrophils Absolute Auto 3700 /uL (1500-7000); Neutrophils Percent Auto 63.5 % (50-75); Platelet Count 209 X10^3/uL (150-400); Red Cell Distribution Width 13.9 % (11.6-14.8); White Blood Cell Count 5.9 X10^3/uL (4.5-11.0)
== END ==
PROVIDERS: PCP Internal Medicine; Referring Provider Podiatrist; Visit Provider Podiatrist
DX: B35.1 Tinea unguium (principal)
CPT/HCPCS: 80053; 85025

== ENCOUNTER → 2024-11-24 12:20 | Outpatient (CLI) | payer MEDICARE, OTHER, SELFPAY ==
[2024-11-24 13:45] LABS: Hematocrit 44.8 % (41-53); Hemoglobin 15.2 g/dL (13.5-17.5); Mean Corpuscular HGB Conc 33.8 % (30-36); Mean Corpuscular Hemoglobin 30.5 PG (26-34); Platelet Count 217 X10^3/uL (150-400); Red Blood Cell Count 4.98 X10^6/uL (4.5-5.9); Red Cell Distribution Width 14.2 % (11.6-14.8); White Blood Cell Count 6.9 X10^3/uL (4.5-11.0)
[2024-11-24 14:07] LABS: Alanine Aminotransferase 21 IU/L (<50); Albumin 4.1 g/dL (3.5-5.0); Albumin Globulin Ratio 1.9 (1.0-2.8); Alkaline Phosphatase 56 U/L (38-126); Aspartate Aminotransferase 30 IU/L (17-59); BUN Creatinine Ratio 25.9 (6-22); Bilirubin Total 0.6 mg/dL (0.2-1.3); Blood Urea Nitrogen 30 mg/dL (9-20); Calcium 8.9 mg/dL (8.4-10.2); Carbon Dioxide 28 mmol/L (22-32); Chloride 103 mmol/L (98-107); Estimated Glomerular Filt Rate > 60 mL/min (>60); Globulin 2.2 g/dL (1.7-4.1); Glucose 74 mg/dL (80-110); HEMOLYSIS < 15 (0-50); Potassium 4.8 mmol/L (3.4-5.1); Sodium 137 mmol/L (137-145); Total Protein 6.3 g/dL (6.3-8.2)
[2024-11-24 14:35] LABS: TSH w/ Reflex to FT4 2.62 uIU/mL (0.47-4.68)
== END ==
PROVIDERS: PCP Internal Medicine; Referring Provider Nurse Practitioner Family; Visit Provider Nurse Practitioner Family
DX: I48.92 Unspecified atrial flutter (principal); I48.19 Other persistent atrial fibrillation
CPT/HCPCS: 36415; 80053; 84443; 85027

== ENCOUNTER → 2024-12-31 14:15 | Outpatient (CLI) | payer MEDICARE, OTHER, SELFPAY ==
[2024-12-31 15:37] LABS: Cholesterol 197 mg/dL (140-199); HDL Cholesterol 45 mg/dL (40-60); LDL Cholesterol Calculated 138 mg/dL (<100); Triglycerides 68 mg/dL (35-150)
== END ==
PROVIDERS: PCP Internal Medicine; Referring Provider Internal Medicine; Visit Provider Internal Medicine
DX: Z13.6 Encounter for screening for cardiovascular disorders (principal); Z13.220 Encounter for screening for lipoid disorders
CPT/HCPCS: 36415; 80061

== ENCOUNTER → 2025-01-12 07:33 | Outpatient (CLI) | payer MEDICARE, OTHER, SELFPAY ==
--- NOTE | 2025-01-12 07:34 | DI.NM.S_ITS ---
PROCEDURE: NM ZAC PERF SPECT R&S PHARM Rest and pharmacological stress myocardial perfusion SPECT with gated imaging and ejection fraction RADIOPHARMACEUTICAL: 12.6 mCi Tc-99m tetrafosmin IV at rest and 27.1 mCi Tc-99m tetrafosmin IV at peak effect of pharmacological stress. [id number] was performed. INDICATIONS: Atrial flutter TECHNIQUE: Radiopharmaceutical was injected at peak stress test, and also at rest. SPECT images were obtained. SPECT myocardial perfusion images were displayed in short axis, horizontal long axis, and vertical long axis views. Gated images were reviewed using [employer] software. COMPARISON: None. CARDIAC STRESS: A pharmacologic stress test was performed under the supervision of an attending staff, using an infusion of regadenoson 0.4 mg IV. Hemodynamic data: There is normal blood pressure and heart rate response to pharmacologic stress. Symptoms: The patient denied anginal chest pain. EKG: No diagnostic changes of ischemia; no ectopy. FINDINGS: Raw data: There is good myocardial uptake of radiotracer. No significant motion artifacts. Tyah-ci-nmjuq ratio is 0.26 (normal is less than 0.38 for tetrafosmin tracer). Left ventricle function: Gated images demonstrate normal left ventricular wall thickening. No segmental wall motion abnormalities. No transient ischemic dilation; TID is 1.1 (normal less than 1.3). Left ventricle resting end diastolic volume is 169 mL. Left ventricle stress ejection fraction is 73%; normal range is above 45%. Myocardial perfusion: There is a small sized, mild intensity fixed apical lateral wall defect that appears to mostly resolve in prone imaging. No reversible perfusion defects. IMPRESSION: Low risk study. No evidence of pharmacologic induced ischemia. The small size, mild intensity fixed apical lateral wall defect shows near complete resolution in prone imaging and is most likely consistent with attenuation artifact. Increased LVEDV based on calculated volume. Normal LV function. Dictated by: Kyra Cerrato D.O. on 01/12/2025 at 16:21 Approved by: Kyra Cerrato D.O. on 01/12/2025 at 16:24
--- NOTE | 2025-01-12 07:35 | DI.ECHO.S_ITS ---
[facility] : : [address] : : [place] : : [id number] : : Phone: [phone] Echocardiogram Report + + :Name: JAI BERRY Study Date: 01/12/2025 Height: 73 in : :[facility] ReadingLocation: Weight: 205 lb : : Gender: Male BSA: 2.2 m2 : :: 1935 Age: 89 yrs BP: 162/86 mmHg: :Reason For Study: ATRIAL FLUTTER : :Ordering Physician: DUANE, : :LB Performed By: Bushra Parker : :Referring: LB ZEPEDA : + + Interpretation Summary The patient has a ventricular paced rhythm. The heart rate ranged between 45-78 bpm during the study. Underlying atrial flutter The left ventricle is normal in size. The ejection fraction is estimated to be 55-60%. Apical wall motion abnormality may reflect pacemaker activation. The right ventricle is normal in size and function. There is a pacemaker lead in the right ventricle. New finding. There is moderate mitral regurgitation. There is mild to moderate tricuspid regurgitation. Compared to the prior echo exam, there has been an increase in TR severity. The right ventricular systolic pressure is estimated to be at least 44 mmHg based on an estimated right atrial pressure of 3 mm Hg. Compared to the prior echo exam, there has been an increase in the severity of pulmonary hypertension. Procedure: A two-dimensional transthoracic echocardiogram with color flow and Doppler was performed. The study quality was technically adequate. Comparison is made with the echocardiogram of 07/16/2023. The patient was in atrial flutter during the exam. The heart rate ranged between 45-78 bpm during the study. The patient has a paced rhythm. Underlying atrial flutter. Left Ventricle: The left ventricle is normal in size. Proximal septal thickening is noted. The ejection fraction is estimated to be 55-60%. Apical wall motion abnormality may reflect pacemaker activation. Diastolic function could not be accurately assessed due to atrial flutter.E/E' med: 7.9. Right Ventricle: The right ventricle is normal in size and function. There is a pacemaker lead in the right ventricle. Atria: The left atrial size is normal. There has been no significant change since the previous study. Right atrial size is normal. The right atrium has mildly decreased in size since the prior echo exam. There is a catheter/pacemaker lead seen in the right atrium. There is no Doppler evidence for an interatrial shunt. Mitral Valve: The mitral valve leaflets appear to open well. The mitral valve leaflets appear borderline thickened, but open well. There is moderate mitral regurgitation. Compared to the prior echo study, there has been no change in the severity of mitral regurgitation. Aortic Valve: The aortic valve is trileaflet. The aortic valve is mildly calcified. There is no aortic valve stenosis. There is no aortic regurgitation. Tricuspid Valve: The tricuspid valve is normal. There is mild to moderate tricuspid regurgitation. The right ventricular systolic pressure is estimated to be at least 44 mmHg based on an estimated right atrial pressure of 3 mm Hg. Compared to the prior echo exam, there has been an increase in TR severity. Compared to the prior echo exam, there has been an increase in the severity of pulmonary hypertension. Pulmonic Valve: The pulmonic valve leaflets are thin and pliable; valve motion is normal. There is a trace or physiologic amount of pulmonic regurgitation. Great Vessels: The aortic root is normal size. The dimensions of the ascending aorta are normal. The IVC is of normal diameter and collapses greater than 50% with a sniff. This suggests a low right atrial pressure of 3 mm Hg. Pericardium/ Pleura There is no pericardial effusion. There is no pleural effusion. MMode/2D Measurements & Calculations LVIDd: 5.4 cm LVOT diam: 2.2 cm LVIDs: 3.4 cm Ao root diam: 3.3 cm FS: 37.5 % asc Aorta Diam: 3.6 cm IVSd: 0.94 cm Ao Arch Diam (Prox Trans): 3.0 cm LVPWd: 1.0 cm LV ho. diameter/BSA (cm/m^2): 2.5 LV sys. diameter/BSA (cm/m^2): 1.6 LA A2 area: 21.8 cm2 RA long axis: 5.9 cm LA A4 area: 24.3 cm2 RA area: 22.6 cm2 LA length (vol): 6.2 cm RA vol: 73.7 ml LA vol: 72.1 ml RA : 33.9 ml/m2 LA vol index: 33.2 ml/m2 IVC diam: 1.3 cm RVD1 (basal): 3.9 cm RVD2 (mid): 3.7 cm TAPSE: 1.9 cm Doppler Measurements & Calculations Ao V2 max: 132.8 cm/sec LVOT Max Claudio: 89.0 cm/sec Ao V2 mean: 86.8 cm/sec LV V1 max P.2 mmHg Ao max P.8 mmHg LV V1 VTI: 19.9 cm Ao mean P.8 mmHg MARY(I,D): 2.5 cm2 Ao V2 VTI: 30.3 cm MARY(V,D): 2.5 cm2 sev ratio: 0.66 MARY indexed to BSA (cm^2/m^2): 1.1 MV E max claudio: 82.0 cm/sec TR max claudio: 319.7 cm/sec Med Peak E' Claudio: 10.4 cm/sec TR max P.9 mmHg E/E' med: 7.9 PA V2 max: 80.6 cm/sec MV dec time: 0.13 sec PA V2 mean: 52.6 cm/sec MR ERO: 0.18 cm2 PA mean P.3 mmHg PA pr(Accel): 39.6 mmHg MR PISA: 3.3 cm2 SV(LVOT): 74.6 ml MR flow rate: 107.5 cm3/sec MR PISA radius: 0.72 cm Reading Physician:10:01 AM
== END ==
PROVIDERS: PCP Internal Medicine; Referring Provider Nurse Practitioner Family; Visit Provider Nurse Practitioner Family
DX: I08.1 Rheumatic disorders of both mitral and tricuspid valves (principal); I48.92 Unspecified atrial flutter; I27.20 Pulmonary hypertension, unspecified; Z95.0 Presence of cardiac pacemaker
CPT/HCPCS: 78452; 93017; 93306; A9502; J2785

== ENCOUNTER → 2025-01-14 14:21 | Outpatient (CLI) | payer MEDICARE, OTHER, SELFPAY ==
[2025-01-14 15:28] LABS: Add Manual Diff / Slide Review NO; Basophils Absolute Auto 100 /uL (0-100); Basophils Percent Auto 0.8 % (0-2); Eosinophils Absolute Auto 200 /uL (0-450); Hematocrit 46.5 % (41-53); Hemoglobin 15.8 g/dL (13.5-17.5); Lymphocytes Absolute Auto 1600 /uL (1100-4500); Lymphocytes Percent Auto 22.1 % (25-40); Mean Corpuscular HGB Conc 33.9 % (30-36); Mean Corpuscular Hemoglobin 30.7 PG (26-34); Mean Corpuscular Volume 90.5 fL (80-100); Monocytes Absolute Auto 600 /uL (0-900); Monocytes Percent Auto 8.7 % (3-14); Neutrophils Absolute Auto 4700 /uL (1500-7000); Neutrophils Percent Auto 65.4 % (50-75); Platelet Count 205 X10^3/uL (150-400); Red Blood Cell Count 5.13 X10^6/uL (4.5-5.9); Red Cell Distribution Width 13.8 % (11.6-14.8); White Blood Cell Count 7.2 X10^3/uL (4.5-11.0)
[2025-01-14 15:51] LABS: BUN Creatinine Ratio 25.2 (6-22); Blood Urea Nitrogen 28 mg/dL (9-20); Calcium 9.3 mg/dL (8.4-10.2); Carbon Dioxide 26 mmol/L (22-32); Chloride 103 mmol/L (98-107); Estimated Glomerular Filt Rate > 60 mL/min (>60); Glucose 82 mg/dL (70-99); HEMOLYSIS < 15 (0-50); Potassium 4.9 mmol/L (3.4-5.1); Sodium 137 mmol/L (137-145)
== END ==
PROVIDERS: PCP Internal Medicine; Referring Provider Nurse Practitioner Family; Visit Provider Nurse Practitioner Family
DX: I48.92 Unspecified atrial flutter (principal)
CPT/HCPCS: 36415; 80048; 85025